=== PATIENT | male | born 1945 | race Caucasian/White ===

== ENCOUNTER 2020-02-15 14:41 | Inpatient (IN) | payer MEDICARE, BC, OTHER ==
[~2020-02-15] VITALS: Ht 193 cm; Wt 10.4 kg
[2020-02-15 15:34] LABS: BASOPHILS # (AUTO) 0.1 (0.0-0.1); BASOPHILS % 0.4 % (0.0-1.0); EOSINOPHILS % 0.1 % (0.0-6.0); HEMATOCRIT 44.8 % (38.2-49.6); HEMOGLOBIN 13.7 g/dL (14.0-18.0); LYMPHOCYTES % 7.3 % (18.0-39.1); MEAN CORPUSCULAR HEMOGLOBIN 25.9 pg (28-32); MEAN CORPUSCULAR HGB CONC 30.6 g/dL (31-35); MEAN CORPUSCULAR VOLUME 84.7 fL (81-99); MONOCYTES # (AUTO) 0.3 (0.2-0.8); MONOCYTES % 2.1 % (4.4-11.3); NEUTROPHILS # (AUTO) 12.5 (2.1-6.9); NEUTROPHILS % 88.6 % (38.7-80.0); PLATELET COUNT 250 x10e3/uL (140-360); RED BLOOD COUNT 5.29 x10e6/uL (4.3-5.7); RED CELL DISTRIBUTION WIDTH 22.8 % (11.7-14.4)
--- NOTE | 2020-02-15 15:47 | Diagnostic Imaging Report ---
Exam: Finger 3 views History: Pain Comparison: None. Findings: No fracture or malalignment. Joint spaces preserved. No abnormal soft tissue calcification or soft tissue defect. Soft tissue swelling of the index finger. Impression: No acute osseous abnormality. Soft tissue swelling. Signed by: Dr. Ray Chow M.D. on 02/15/2020 3:43 PM
[2020-02-15 15:57] LABS: ALBUMIN/GLOBULIN RATIO 0.9 (0.8-2.0); ANION GAP 13.3 mmol/L (8-16); CALCIUM 8.2 mg/dL (8.4-10.2); CREATININE, SERUM 1.42 mg/dL (0.72-1.25); POTASSIUM 4.3 mmol/L (3.5-5.1)
[2020-02-15] MEDS ORDERED: ONDANSETRON HCL INJ 2MG/ML 2ML 2 MG/ML VIAL IV PRN (16:00)
[2020-02-15] MEDS ORDERED: ACETAMINOPHEN 325 MG TAB PO PRN ×2 (16:00→19:00)
[2020-02-15] MEDS ORDERED: SODIUM CHLORIDE 0.9% 1000ML 1,000 ML IV SCH (16:00)
[2020-02-15] MEDS ORDERED: VANCOMYCIN 1GM/NS 250 ML 250 ML IV ONE (16:00)
--- OUTSIDE RECORDS SUMMARY | 2020-02-15 16:15 | XMS REPORT ---
Author Author [facility] Organization [facility] Address Unknown Phone Unavailable Care Team Providers Care Comprehensive Advisor Name Role Phone Miguelina INIGUEZ Unavailable Unavailable Payers Payer Name Policy Type Policy Number Effective Date Expiration D ate Problems This patient has no known problems. Allergies, Adverse Reactions, Alerts Allergy Name Allergy Type Status Severity Reaction(s) Onset Date Inacti ve Date Treating Clinician Comments Penicillins DA Active MO 2018-07-02 00:00:00 Sulfa (Sulfonamide Antibiotics) DA Active U 00:00:00 tetracycline DA Active U 2018-07-02 00:00:00 celecoxib DA Active U 2018-07-02 00:00:00 Penicillins DA Active MO 2018-06-25 00:00:00 Sulfa (Sulfonamide Antibiotics) DA Active U 00:00:00 tetracycline DA Active U 2018-06-25 00:00:00 celecoxib DA Active U 2018-06-25 00:00:00 Penicillins DA Active MO 2018-06-20 00:00:00 Sulfa (Sulfonamide Antibiotics) DA Active U 00:00:00 tetracycline DA Active U 2018-06-20 00:00:00 celecoxib DA Active U 2018-06-20 00:00:00 Penicillins DA Active MO 2017-10-31 00:00:00 Sulfa (Sulfonamide Antibiotics) DA Active U 00:00:00 tetracycline DA Active U 2017-10-31 00:00:00 celecoxib DA Active U 2017-10-31 00:00:00 Medications This patient has no known medications. Results Test Description Test Time Test Comments Text Results Atomic Results Result Comments FINGER RIGHT 2020-02-15 15:42:00 [place] [address] Patient Name: KAMALJIT CAMACHO MR #: [id number] : 1945 Age/Sex: 74/M Req #: [id number] Adm Physician: Ordered by: KAMALJIT MIKE NP Report #: [id number] Location: ER Room/Bed: Procedure: [id number] DX/FINGER RIGHT Exam Date: 02/15/20 Exam Time: 1450 REPORT STATUS: Signed Exam: Finger 3 views History: Pain Comparison: None. Findings: No fracture or malalignment. Joint spaces preserved. No abnormal soft tissue calcification or soft tissue defect. Soft tissue swelling of the index finger. Impression: No acute osseous abnormality. Soft tissue swelling. Signed by: Dr. Alexis Doshi M.D. on 02/15/2020 3:43 PM Dictated By: ALEXIS DOSHI MD [id number] Transcribed By: NEVA on 02/15/20 6009 COPY TO: KAMALJIT MIKE NP LUNG,BIOPSY 2019-04-24 15:20:00 RUN DATE: 04/24/19 [facility] PAGE 1 RUN TIME: 1520 Specimen Inquiry RUN USER: INTERFACE PATIENT: KAMALJIT CAMACHO LOC: [place] #: [id number] AGE/SX: 74/M ROOM: [facility] RE04/17/19REG DR: Hu Duarte MD : 41 BED: B DIS: 04/23/19 STATUS: DIS IN TLOC: SPEC #: [id number] RECD: 04/22/19 STATUS: PAUL REDiane #: [id number] ALESSANDRO: 04/22/19- [facility] DR: Kan King MD ENTERED: 04/22/19 SP TYPE: LUNG BX OTHR DR: Екатерина Solorzano MD, David A MD Vasquez Donado, Andres F MDORDERED: GROSS COPIES TO: Kan King MD [address] [place] [address] Екатерина Solorzano MD [address] [facility] [address] [place] [address] Kang Aquino MD [address] [place] [address] Chon Nam MD [address] [facility] [address] [place] [address] PROCEDURES: GROSS (04/24/19-1500) TISSUES: RIGHT LUNG, NOS - MASS BX CLINICAL HISTORY COLLECTION DATE: 04/22/2019 HISTORY OF LUNG MASS, POSSIBLE TUBERCULOSIS (TB) COMMENT Clinical correlation is recommended. CONTINUED ON NEXT PAGE RUN DATE: 04/24/19 [facility] PAGE 2 RUN TIME: 1520 Specimen Inquiry RUN USER: INTERFACE SPEC #: [id number] PATIENT: KAMALJIT CAMACHO #[id number] (Continued) FINAL DIAGNOSIS Right lung mass, core biopsy and touch preps: LUNG TISSUE WITH CHRONIC INFLAMMATION, INCREASED FIBROUS TISSUE AND A NECROTIZING GRANULOMA NEGATIVE FOR ACID FAST AND FUNGAL ORGANISMS NEGATIVE FOR MALIGNANCY [facility]/ D 83854, 97062, [id number] MACROSCOPIC The specimen is received in formalin and labeled with the patient's name and identified as "right lung mass bx", and consists of multiple gomes soft core biopsies ranging from 0.3 to 0.8 cm. The specimen is filtered and entirely submitted in a single cassette. Also received are three touch prep slides for cytologic evaluation. GROSS PERFORMED AT [facility] [address] [place] [address] (P)[phone] MICROSCOPIC The sections demonstrate lung tissue with chronic inflammation consisting of lymphocytes and plasma cells. There is an increased amount of fibrous tissue present in the alveolar florian. There is an area of necrotizing granuloma formation. An acid fast and a GMS stain are prepared on the core biopsy and an acid fast stain is prepared on one the touch prep slides and a GMS stain is prepared on another touch prep slide. The remaining touch prep slide is stained with a PAP stain and demonstrates benign pulmonary macrophages, some white blood cells, and red blood cells, and a giant cell. The GMS and acid fast stains are negative in the touch preps and in the core biopsy sections. All of the stains, including any controls performed, stain appropriately. MICROSCOPIC PERFORMED AT [facility] [address] [place] [address] (p)[phone] CONTINUED ON NEXT PAGE RUN DATE: 04/24/19 [facility] PAGE 3 RUN TIME: 1520 Specimen Inquiry RUN USER: INTERFACE SPEC #: [id number] PATIENT: KAMALJIT CAMACHO #[id number] (Cont inued) PERFORMING SITE Diagnosis performed at: [facility] [address] [place] [address] Signed SIGNATURE ON FILE Yaa Simmons MD 04/24/19 1520 END OF REPORT AG HISTOPLASMA UA 2019-04-24 13:52:00 AG HISTOPLASMA UA (test code = HISUAAG) <0.5 EIA UNIT <1.0=NEG SOURCE: RANDOM URINE QUANTIFERON [id number] 19:08:00* Test Item Value Reference Range Comments QUANTIFERON TEST (test code = QFTT) Negative Negative The specimen received for QuantiFERON testing was incubatedby the ordering institution. Specific procedures outlinedin our Directory of Services and in the package insert forthe QuantiFERON Gold (In Tube) test must be followed toenable for proper stimulation of cells for the productionof interferon gamma.Performed At: [facility] [id number] Sanjai MD P h:[id number] - XR CHEST 1 [id number] 17:52:00 FAX: Hu Sykes MD [phone] [place]: St: ADM Name: KAMALJIT SILVA [facility] : [birth year] Age/S: 74/M [address] [facility] Unit #: [id number] Loc: V.[address] [place] [address] Phys: Ivan Lyon MD Acct: [id number] Dis Date: Status: ADM IN PHONE #: [phone] Exam Date: 04/22/2019 1720 FAX #: [phone] Reason: POST LUNG BX EXAMS: CPT CODE: [id number] XR CHEST 1 V 12726 REASON FOR EXAM: POST LUNG BX Exam Order Date: 04/22/2019 4:56 PM Ordering M.D.: Ivan Lyon MD PROCEDURE: - XR CHEST 1 V COMPARISON: AP chest x-ray earlier today at 12:11 PM FINDINGS: Prev iously seen right apical pneumothorax has resolved. Spiculated lesion in t he right upper lobe is stable appearing. Remainder of the lungs appear augusto ssly clear. Left subclavian vein approach ICD/pacemaker is stable. Lungs are clear. Cardiac mediastinal silhouette is enlarged but stable appearing. Bones are unchanged. IMPRES SONU: Previously seen right apical pneumothorax has resolved. Remaining findings are unchanged. Electronically Signed by Petr Mayers MD on 0 04/22/2019 at 6442 Reported and signed by: Petr Mayers MD CC: Hu Duarte Techn ologist: Maya Nieves) Trnscrd Date/Luis Fernando e/By: 04/22/2019 (695) : By: CeleRR31 Orig Print D/T: S: 04/22/2019 (5861) PAGE 1 Signed Report - CT GUID NDL [id number] 16:20:00 Name: KAMALJIT CAMACHO [facility] : 1945 Age/S: 74 / M [address] [facility] Unit #: [id number] Loc: [place] [address] Phys: Nataly Duarte am, MD Acct: [id number] Di s Date: Status: ADM IN PHONE #: Exam Date: 04/22/2019954 FAX #: Reason: LUNG BIOPSY EXAMS: CPT CODE: [id number] CT GUID NDL P [facility] [address] REASON FOR EXAM: Right upper lobe lung mass. PROCEDURE: CT-guided biopsy of right u pper lobe lung mass [id number]-xx-[id number] procedure time is approximately: 45 minutes FINDINGS: After informed consent was obtained, the bret ent was brought to CT and placed supine on the table. All elements of [facility] sterile barrier technique were followed. Prior to the biopsy, axial images of the right upper lobe were obtained without intravenous co ntrast. Images of the CT were reviewed and the right upper lobe mass was localized. A safe pathway was found between the subcutaneous entry site a nd the right upper lobe mass. The access site was prepped and draped in th e usual sterile fashion. A guiding needle was advanced into right upper lo be mass. Multiple core biopsies were then performed using a 20-gauge biops y gun. Samples were submitted for cytology, microbiology, and flow cytomet ry. The needle was removed and hemostasis obtained. MEDICATI ONS: 1mg versed 25mcg fentanyl COMPLICATIONS: No immediate Blood loss: Less than 5 mL Fluoroscopic dose:640 mGy IMPRESSION: Technically successful CT-guided biopsy of right upper lobe mass. at 1620 Reported and signed by: Ivan Lyon M.D. CC: Hu Duarte Technologist:Rosalba groves,RT(R),CT CTDI: DLP: Trnscb Date/Time: 04/22/2019 (16 20) CeleVTL Orig Print D/T: S: 04/22/2019 (4875) P AGE 1 Signed Report - XR CHEST 1 [id number] 12:49:00 FAX: Hu Sykes MD [phone] [place]: St: ADM Name: KAMALJIT SILVA [facility] : 04/17/[birth year] 41 Age/S: 74/M [address] [facility] Unit #: [id number] Loc: V.[address] [place] [address] Phys: Ivan Lyon MD Acct: [id number] Dis Date: Status: ADM IN PHONE #: [phone] Exam Date: 04/22/2019 1211 FAX #: [phone] Reason: POST LUNG BX EXAMS: CPT CODE: [id number] XR CHEST 1 V 08216 HISTORY: Post lung biopsy. COMPARISON: 2019. Trace 5% pneumothorax in the right apex. Follow-up with expiratory films for confirmation. Left ICD is unc hanged. Right upper lobe mass is ill-defined after biopsy due to surroundi ng small hemorrhage. Bibasal subsegmental atelectasis without infiltrates or congestion. Cardiomegaly IMPRESSION: Trace 5% pneumothorax in the right apex of the biopsy. Confirmation with repeat exam in expiratory phase. These findings were called to the spec ial procedures at 12:48 PM. at 5884 Reported and signed by: Maico yousif M.D. CC: Hu Duarte Technologist: JC NEWBY JR Trnscrd Date/Time/By: 04/22/2019 (1322) : By: CeleTH4 Orig Print D/T: S: 04/22/2019 (2339) PAGE 1 Signed Report B-TYPE NATRIURETIC [id number] 06:04:00* Test Item Value Reference Range Comments B-TYPE NATRIURETIC PEPTIDE (test code = BNP) 861.01 pgram/mL 0-1 00 Has Patient received Natrecor? NOCBC W/AUTO [id number] 06:03:00* Test Item Value Reference Range Comments WHITE BLOOD CELL (test code = WBC) 15.6 K/mm3 4.5-12.5 RED BLOOD CELL (test code = RBC) 4.63 mill/mm3 4.0-5.8 HEMOGLOBIN (test code = HGB) 12.2 gram/dL 13.0-17.5 HEMATOCRIT (test code = HCT) 38.9 % 42.0-52.0 MEAN CELL VOLUME (test code = MCV) 84.0 fL 80-98 MEAN CELL HGB (test code = MCH) 26.3 picogram 27.0-33.0 MEAN CELL HGB CONCETRATION (test code = MCHC) 31.4 gram/dL 33 .0-36.0 RED CELL DISTRIBUTION WIDTH (test code = RDW) 21.7 % 11 .6-16.2 RED CELL DISTRIBUTION WIDTH SD (test code = RDW-SD) 66.0 fL 37.0-51.0 PLATELET COUNT (test code = PLT) 234 K/mm3 150-450 MEAN PLATELET VOLUME (test code = MPV) 9.5 fL 6.7-11.0 NEUTROPHIL % (test code = NT%) 78.0 % 39.0-69.0 IMMATURE GRANULOCYTE % (test code = IG%) 2.8 % 0.0-5.0 LYMPHOCYTE % (test code = LY%) 11.7 % 25.0-55.0 MONOCYTE % (test code = MO%) 6.1 % 0.0-10.0 EOSINOPHIL % (test code = EO%) 1.0 % 0.0-5.0 BASOPHIL % (test code = BA%) 0.4 % 0.0-1.0 NUCLEATED RBC % (test code = NRBC%) 0.0 % 0-0 NEUTROPHIL # (test code = NT#) 12.17 K/mm3 1.8-7.7 IMMATURE GRANULOCYTE # (test code = IG#) 0.44 x10 3/uL 0-0.03 LYMPHOCYTE # (test code = LY#) 1.83 K/mm3 1.0-5.0 MONOCYTE # (test code = MO#) 0.95 K/mm3 0-0.8 EOSINOPHIL # (test code = EO#) 0.15 K/mm3 0.0-0.5 BASOPHIL # (test code = BA#) 0.06 K/mm3 0.0-0.2 NUCLEATED RBC # (test code = NRBC#) 0.00 K/mm3 0.0-0.1 MANUAL DIFF REQUIRED (test code = MDIFF) NO, ONLY SCAN NEEDED DIFFERENTIAL [id number] 06:03:00* Test Item Value Reference Range Comments STAIN ACCEPTABILITY (test code = STN ACCEPTABLE) STAIN ACCEPTABL E POIKILOCYTOSIS (test code = POIK) 3+ ANISOCYTOSIS (test code = ANISO) 1+ ELLIPTOCYTES (test code = ELL) 2+ AYANA CELLS (test code = AYANA) 2+ NONE PLATELET ESTIMATE (test code = PLTEST) ADEQUATE PLATELET MORPHOLOGY (test code = PLTMORPH) NORMAL BASIC METABOLIC [id number] 05:52:00* Test Item Value Reference Range Comments SODIUM (test code = NA) 141 mmol/L 136-145 POTASSIUM (test code = K) 4.4 mmol/L 3.5-5.1 CHLORIDE (test code = CL) 108.0 mmol/L 98-107 CARBON DIOXIDE (test code = CO2) 27.0 mmol/L 21-32 ANION GAP (test code = GAP) 10.4 10-20 GLUCOSE (test code = GLU) 83 mg/dL 74-106 BLOOD UREA NITROGEN (test code = BUN) 18 mg/dL 7-18 GLOMERULAR FILTRATION RATE (test code = GFR) 54 mL/min >=6 0 Estimated GFR by using Modified MDRD formula.Chronic kidney disease is defined as either kidney damageor GFR <60 mL/min/1.73 m2 for >3 months. CREATININE (test code = CREAT) 1.30 mg/dL 0.7-1.3 BUN/CREATININE RATIO (test code = BUN/CREA) 14.2 10-2 0 CALCIUM (test code = CA) 8.4 mg/dL 8.5-10.1 [id number] 05:52:00* Test Item Value Reference Range Comments MAGNESIUM (test code = MAG) 2.0 mg/dL 1.8-2.4 BASIC METABOLIC [id number] 05:50:00* Test Item Value Reference Range Comments SODIUM (test code = NA) 141 mmol/L 136-145 POTASSIUM (test code = K) 4.4 mmol/L 3.5-5.1 CHLORIDE (test code = CL) 108.0 mmol/L 98-107 CARBON DIOXIDE (test code = CO2) mmol/L 21-32 ANION GAP (test code = GAP) 10-20 GLUCOSE (test code = GLU) mg/dL 74-106 BLOOD UREA NITROGEN (test code = BUN) mg/dL 7-18 GLOMERULAR FILTRATION RATE (test code = GFR) mL/min >=6 0 CREATININE (test code = CREAT) mg/dL 0.7-1.3 BUN/CREATININE RATIO (test code = BUN/CREA) 10-2 0 CALCIUM (test code = CA) 8.4 mg/dL 8.5-10.1 [id number] 05:50:00* Test Item Value Reference Range Comments MAGNESIUM (test code = MAG) mg/dL 1.8-2.4 THROMBOPLASTIN TIME [id number] 05:30:00* Test Item Value Reference Range Comments THROMBOPLASTIN TIME PARTIAL (test code = PTT) 32.0 seconds 25 .0-36.5 IS PATIENT ON ANTICOAGULANTS? 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 The recommended therapeutic INRrange for various clinical situations is listed below: Clinical Situation INR range Pulmonary e mbolism treatment (2.0-3.0)Venous thrombosis treatmentVenous thrombosis prophylaxis (high risk surgery)Prevention of systemic embolism from: Acute myocardial infarction Valvular heart disease Atrial fibrillation Mechanical prosthetic heart valves (2.5-3.5) IS PATIENT ON ANTICOAGULANTS? NCBC W/AUTO [id number] 05:21:00* Test Item Value Reference Range Comments WHITE BLOOD CELL (test code = WBC) 15.6 K/mm3 4.5-12.5 RED BLOOD CELL (test code = RBC) 4.63 mill/mm3 4.0-5.8 HEMOGLOBIN (test code = HGB) 12.2 gram/dL 13.0-17.5 HEMATOCRIT (test code = HCT) 38.9 % 42.0-52.0 MEAN CELL VOLUME (test code = MCV) 84.0 fL 80-98 MEAN CELL HGB (test code = MCH) 26.3 picogram 27.0-33.0 MEAN CELL HGB CONCETRATION (test code = MCHC) 31.4 gram/dL 33 .0-36.0 RED CELL DISTRIBUTION WIDTH (test code = RDW) 21.7 % 11 .6-16.2 RED CELL DISTRIBUTION WIDTH SD (test code = RDW-SD) 66.0 fL 37.0-51.0 PLATELET COUNT (test code = PLT) 234 K/mm3 150-450 MEAN PLATELET VOLUME (test code = MPV) 9.5 fL 6.7-11.0 NEUTROPHIL % (test code = NT%) 78.0 % 39.0-69.0 IMMATURE GRANULOCYTE % (test code = IG%) 2.8 % 0.0-5.0 LYMPHOCYTE % (test code = LY%) 11.7 % 25.0-55.0 MONOCYTE % (test code = MO%) 6.1 % 0.0-10.0 EOSINOPHIL % (test code = EO%) 1.0 % 0.0-5.0 BASOPHIL % (test code = BA%) 0.4 % 0.0-1.0 NUCLEATED RBC % (test code = NRBC%) 0.0 % 0-0 NEUTROPHIL # (test code = NT#) 12.17 K/mm3 1.8-7.7 IMMATURE GRANULOCYTE # (test code = IG#) 0.44 x10 3/uL 0-0.03 LYMPHOCYTE # (test code = LY#) 1.83 K/mm3 1.0-5.0 MONOCYTE # (test code = MO#) 0.95 K/mm3 0-0.8 EOSINOPHIL # (test code = EO#) 0.15 K/mm3 0.0-0.5 BASOPHIL # (test code = BA#) 0.06 K/mm3 0.0-0.2 NUCLEATED RBC # (test code = NRBC#) 0.00 K/mm3 0.0-0.1 MANUAL DIFF REQUIRED (test code = MDIFF) NO, ONLY SCAN NEEDED DIFFERENTIAL [id number] 05:21:00* Test Item Value Reference Range Comments STAIN ACCEPTABILITY (test code = STN ACCEPTABLE) CABOT RINGS (test code = CAB) MORPHOLOGY COMMENT (test code = MOC) PLATELET ESTIMATE (test code = PLTEST) PLATELET MORPHOLOGY (test code = PLTMORPH) CBC W/AUTO [id number] 05:21:00* Test Item Value Reference Range Comments WHITE BLOOD CELL (test code = WBC) 15.6 K/mm3 4.5-12.5 RED BLOOD CELL (test code = RBC) 4.63 mill/mm3 4.0-5.8 HEMOGLOBIN (test code = HGB) 12.2 gram/dL 13.0-17.5 HEMATOCRIT (test code = HCT) 38.9 % 42.0-52.0 MEAN CELL VOLUME (test code = MCV) 84.0 fL 80-98 MEAN CELL HGB (test code = MCH) 26.3 picogram 27.0-33.0 MEAN CELL HGB CONCETRATION (test code = MCHC) 31.4 gram/dL 33 .0-36.0 RED CELL DISTRIBUTION WIDTH (test code = RDW) 21.7 % 11 .6-16.2 RED CELL DISTRIBUTION WIDTH SD (test code = RDW-SD) 66.0 fL 37.0-51.0 PLATELET COUNT (test code = PLT) 234 K/mm3 150-450 MEAN PLATELET VOLUME (test code = MPV) 9.5 fL 6.7-11.0 NEUTROPHIL % (test code = NT%) 78.0 % 39.0-69.0 IMMATURE GRANULOCYTE % (test code = IG%) 2.8 % 0.0-5.0 LYMPHOCYTE % (test code = LY%) 11.7 % 25.0-55.0 MONOCYTE % (test code = MO%) 6.1 % 0.0-10.0 EOSINOPHIL % (test code = EO%) 1.0 % 0.0-5.0 BASOPHIL % (test code = BA%) 0.4 % 0.0-1.0 NUCLEATED RBC % (test code = NRBC%) 0.0 % 0-0 NEUTROPHIL # (test code = NT#) 12.17 K/mm3 1.8-7.7 IMMATURE GRANULOCYTE # (test code = IG#) 0.44 x10 3/uL 0-0.03 LYMPHOCYTE # (test code = LY#) 1.83 K/mm3 1.0-5.0 MONOCYTE # (test code = MO#) 0.95 K/mm3 0-0.8 EOSINOPHIL # (test code = EO#) 0.15 K/mm3 0.0-0.5 BASOPHIL # (test code = BA#) 0.06 K/mm3 0.0-0.2 NUCLEATED RBC # (test code = NRBC#) 0.00 K/mm3 0.0-0.1 MANUAL DIFF REQUIRED (test code = MDIFF) NO, ONLY SCAN NEEDED DIFFERENTIAL [id number] 05:21:00* Test Item Value Reference Range Comments STAIN ACCEPTABILITY (test code = STN ACCEPTABLE) CABOT RINGS (test code = CAB) MORPHOLOGY COMMENT (test code = MOC) PLATELET ESTIMATE (test code = PLTEST) PLATELET MORPHOLOGY (test code = PLTMORPH) CBC W/AUTO [id number] 05:21:00* Test Item Value Reference Range Comments WHITE BLOOD CELL (test code = WBC) 15.6 K/mm3 4.5-12.5 RED BLOOD CELL (test code = RBC) 4.63 mill/mm3 4.0-5.8 HEMOGLOBIN (test code = HGB) 12.2 gram/dL 13.0-17.5 HEMATOCRIT (test code = HCT) 38.9 % 42.0-52.0 MEAN CELL VOLUME (test code = MCV) 84.0 fL 80-98 MEAN CELL HGB (test code = MCH) 26.3 picogram 27.0-33.0 MEAN CELL HGB CONCETRATION (test code = MCHC) 31.4 gram/dL 33 .0-36.0 RED CELL DISTRIBUTION WIDTH (test code = RDW) 21.7 % 11 .6-16.2 RED CELL DISTRIBUTION WIDTH SD (test code = RDW-SD) 66.0 fL 37.0-51.0 PLATELET COUNT (test code = PLT) 234 K/mm3 150-450 MEAN PLATELET VOLUME (test code = MPV) 9.5 fL 6.7-11.0 NEUTROPHIL % (test code = NT%) 78.0 % 39.0-69.0 IMMATURE GRANULOCYTE % (test code = IG%) 2.8 % 0.0-5.0 LYMPHOCYTE % (test code = LY%) 11.7 % 25.0-55.0 MONOCYTE % (test code = MO%) 6.1 % 0.0-10.0 EOSINOPHIL % (test code = EO%) 1.0 % 0.0-5.0 BASOPHIL % (test code = BA%) 0.4 % 0.0-1.0 NUCLEATED RBC % (test code = NRBC%) 0.0 % 0-0 NEUTROPHIL # (test code = NT#) 12.17 K/mm3 1.8-7.7 IMMATURE GRANULOCYTE # (test code = IG#) 0.44 x10 3/uL 0-0.03 LYMPHOCYTE # (test code = LY#) 1.83 K/mm3 1.0-5.0 MONOCYTE # (test code = MO#) 0.95 K/mm3 0-0.8 EOSINOPHIL # (test code = EO#) 0.15 K/mm3 0.0-0.5 BASOPHIL # (test code = BA#) 0.06 K/mm3 0.0-0.2 NUCLEATED RBC # (test code = NRBC#) 0.00 K/mm3 0.0-0.1 MANUAL DIFF REQUIRED (test code = MDIFF) NO, ONLY SCAN NEEDED DIFFERENTIAL [id number] 05:21:00* Test Item Value Reference Range Comments STAIN ACCEPTABILITY (test code = STN ACCEPTABLE) MORPHOLOGY COMMENT (test code = MOC) PLATELET ESTIMATE (test code = PLTEST) PLATELET MORPHOLOGY (test code = PLTMORPH) CBC W/AUTO [id number] 05:21:00* Test Item Value Reference Range Comments WHITE BLOOD CELL (test code = WBC) 15.6 K/mm3 4.5-12.5 RED BLOOD CELL (test code = RBC) 4.63 mill/mm3 4.0-5.8 HEMOGLOBIN (test code = HGB) 12.2 gram/dL 13.0-17.5 HEMATOCRIT (test code = HCT) 38.9 % 42.0-52.0 MEAN CELL VOLUME (test code = MCV) 84.0 fL 80-98 MEAN CELL HGB (test code = MCH) 26.3 picogram 27.0-33.0 MEAN CELL HGB CONCETRATION (test code = MCHC) 31.4 gram/dL 33 .0-36.0 RED CELL DISTRIBUTION WIDTH (test code = RDW) 21.7 % 11 .6-16.2 RED CELL DISTRIBUTION WIDTH SD (test code = RDW-SD) 66.0 fL 37.0-51.0 PLATELET COUNT (test code = PLT) 234 K/mm3 150-450 MEAN PLATELET VOLUME (test code = MPV) 9.5 fL 6.7-11.0 NEUTROPHIL % (test code = NT%) 78.0 % 39.0-69.0 IMMATURE GRANULOCYTE % (test code = IG%) 2.8 % 0.0-5.0 LYMPHOCYTE % (test code = LY%) 11.7 % 25.0-55.0 MONOCYTE % (test code = MO%) 6.1 % 0.0-10.0 EOSINOPHIL % (test code = EO%) 1.0 % 0.0-5.0 BASOPHIL % (test code = BA%) 0.4 % 0.0-1.0 NUCLEATED RBC % (test code = NRBC%) 0.0 % 0-0 NEUTROPHIL # (test code = NT#) 12.17 K/mm3 1.8-7.7 IMMATURE GRANULOCYTE # (test code = IG#) 0.44 x10 3/uL 0-0.03 LYMPHOCYTE # (test code = LY#) 1.83 K/mm3 1.0-5.0 MONOCYTE # (test code = MO#) 0.95 K/mm3 0-0.8 EOSINOPHIL # (test code = EO#) 0.15 K/mm3 0.0-0.5 BASOPHIL # (test code = BA#) 0.06 K/mm3 0.0-0.2 NUCLEATED RBC # (test code = NRBC#) 0.00 K/mm3 0.0-0.1 MANUAL DIFF REQUIRED (test code = MDIFF) NO, ONLY SCAN NEEDED DIFFERENTIAL [id number] 05:21:00* Test Item Value Reference Range Comments STAIN ACCEPTABILITY (test code = STN ACCEPTABLE) CABOT RINGS (test code = CAB) MORPHOLOGY COMMENT (test code = MOC) PLATELET ESTIMATE (test code = PLTEST) PLATELET MORPHOLOGY (test code = PLTMORPH) CBC W/AUTO [id number] 07:59:00* Test Item Value Reference Range Comments WHITE BLOOD CELL (test code = WBC) 16.4 K/mm3 4.5-12.5 RED BLOOD CELL (test code = RBC) 4.56 mill/mm3 4.0-5.8 HEMOGLOBIN (test code = HGB) 12.3 gram/dL 13.0-17.5 HEMATOCRIT (test code = HCT) 39.7 % 42.0-52.0 MEAN CELL VOLUME (test code = MCV) 87.1 fL 80-98 MEAN CELL HGB (test code = MCH) 27.0 picogram 27.0-33.0 MEAN CELL HGB CONCETRATION (test code = MCHC) 31.0 gram/dL 33 .0-36.0 RED CELL DISTRIBUTION WIDTH (test code = RDW) 21.8 % 11 .6-16.2 RED CELL DISTRIBUTION WIDTH SD (test code = RDW-SD) 68.5 fL 37.0-51.0 PLATELET COUNT (test code = PLT) 220 K/mm3 150-450 MEAN PLATELET VOLUME (test code = MPV) 9.7 fL 6.7-11.0 NEUTROPHIL % (test code = NT%) 77.5 % 39.0-69.0 IMMATURE GRANULOCYTE % (test code = IG%) 2.2 % 0.0-5.0 LYMPHOCYTE % (test code = LY%) 11.9 % 25.0-55.0 MONOCYTE % (test code = MO%) 6.5 % 0.0-10.0 EOSINOPHIL % (test code = EO%) 1.5 % 0.0-5.0 BASOPHIL % (test code = BA%) 0.4 % 0.0-1.0 NUCLEATED RBC % (test code = NRBC%) 0.0 % 0-0 NEUTROPHIL # (test code = NT#) 12.73 K/mm3 1.8-7.7 IMMATURE GRANULOCYTE # (test code = IG#) 0.36 x10 3/uL 0-0.03 LYMPHOCYTE # (test code = LY#) 1.96 K/mm3 1.0-5.0 MONOCYTE # (test code = MO#) 1.07 K/mm3 0-0.8 EOSINOPHIL # (test code = EO#) 0.25 K/mm3 0.0-0.5 BASOPHIL # (test code = BA#) 0.07 K/mm3 0.0-0.2 NUCLEATED RBC # (test code = NRBC#) 0.00 K/mm3 0.0-0.1 MANUAL DIFF REQUIRED (test code = MDIFF) NO, ONLY SCAN NEEDED DIFFERENTIAL [id number] 07:59:00* Test Item Value Reference Range Comments STAIN ACCEPTABILITY (test code = STN ACCEPTABLE) STAIN ACCEPTABL E POIKILOCYTOSIS (test code = POIK) 3+ ANISOCYTOSIS (test code = ANISO) 1+ MICROCYTOSIS (test code = MICR) 1+ ELLIPTOCYTES (test code = ELL) 1+ AYANA CELLS (test code = YAANA) 2+ NONE ACANTHOCYTES (test code = ACAN) 1+ NONE SICKLE CELLS (test code = SICKL) 1+ PLATELET ESTIMATE (test code = PLTEST) ADEQUATE PLATELET MORPHOLOGY (test code = PLTMORPH) NORMAL COMPREHENSIVE METABOLIC [id number] 06:26:00* Test Item Value Reference Range Comments SODIUM (test code = NA) 140 mmol/L 136-145 POTASSIUM (test code = K) 4.3 mmol/L 3.5-5.1 CHLORIDE (test code = CL) 109.0 mmol/L 98-107 CARBON DIOXIDE (test code = CO2) 23.0 mmol/L 21-32 ANION GAP (test code = GAP) 12.3 10-20 GLUCOSE (test code = GLU) 75 mg/dL 74-106 BLOOD UREA NITROGEN (test code = BUN) 17 mg/dL 7-18 GLOMERULAR FILTRATION RATE (test code = GFR) 59 mL/min >=6 0 Estimated GFR by using Modified MDRD formula.Chronic kidney disease is defined as either kidney damageor GFR <60 mL/min/1.73 m2 for >3 months. CREATININE (test code = CREAT) 1.20 mg/dL 0.7-1.3 BUN/CREATININE RATIO (test code = BUN/CREA) 14.2 10-2 0 TOTAL PROTEIN (test code = PROT) 5.8 gram/dL 6.4-8.2 ALBUMIN (test code = ALB) 2.4 g/dL 3.4-5.0 GLOBULIN (test code = GLOB) 3.4 gram/dL 2.7-4.2 ALBUMIN/GLOBULIN RATIO (test code = A/G) 0.7 0.75-1. 50 CALCIUM (test code = CA) 8.2 mg/dL 8.5-10.1 BILIRUBIN TOTAL (test code = BILT) 0.80 mg/dL 0.0-1.0 SGOT/AST (test code = AST) 16 IUnit/L 15-37 SGPT/ALT (test code = ALT) 19 IUnit/L 12-78 ALKALINE PHOSPHATASE TOTAL (test code = ALKP) 84 IUnit/L 45 -117 Note change in reference range due to change in reagent. COMPREHENSIVE METABOLIC [id number] 06:15:00* Test Item Value Reference Range Comments SODIUM (test code = NA) 140 mmol/L 136-145 POTASSIUM (test code = K) 4.3 mmol/L 3.5-5.1 CHLORIDE (test code = CL) 109.0 mmol/L 98-107 CARBON DIOXIDE (test code = CO2) mmol/L 21-32 ANION GAP (test code = GAP) 10-20 GLUCOSE (test code = GLU) mg/dL 74-106 BLOOD UREA NITROGEN (test code = BUN) mg/dL 7-18 GLOMERULAR FILTRATION RATE (test code = GFR) mL/min >=6 0 CREATININE (test code = CREAT) mg/dL 0.7-1.3 BUN/CREATININE RATIO (test code = BUN/CREA) 10-2 0 TOTAL PROTEIN (test code = PROT) gram/dL 6.4-8.2 ALBUMIN (test code = ALB) g/dL 3.4-5.0 GLOBULIN (test code = GLOB) gram/dL 2.7-4.2 ALBUMIN/GLOBULIN RATIO (test code = A/G) 0.75-1. 50 CALCIUM (test code = CA) mg/dL 8.5-10.1 BILIRUBIN TOTAL (test code = BILT) mg/dL 0.0-1.0 SGOT/AST (test code = AST) IUnit/L 15-37 SGPT/ALT (test code = ALT) IUnit/L 12-78 ALKALINE PHOSPHATASE TOTAL (test code = ALKP) IUnit/L 45 -117 CBC W/AUTO [id number] 05:47:00* Test Item Value Reference Range Comments WHITE BLOOD CELL (test code = WBC) 16.4 K/mm3 4.5-12.5 RED BLOOD CELL (test code = RBC) 4.56 mill/mm3 4.0-5.8 HEMOGLOBIN (test code = HGB) 12.3 gram/dL 13.0-17.5 HEMATOCRIT (test code = HCT) 39.7 % 42.0-52.0 MEAN CELL VOLUME (test code = MCV) 87.1 fL 80-98 MEAN CELL HGB (test code = MCH) 27.0 picogram 27.0-33.0 MEAN CELL HGB CONCETRATION (test code = MCHC) 31.0 gram/dL 33 .0-36.0 RED CELL DISTRIBUTION WIDTH (test code = RDW) 21.8 % 11 .6-16.2 RED CELL DISTRIBUTION WIDTH SD (test code = RDW-SD) 68.5 fL 37.0-51.0 PLATELET COUNT (test code = PLT) 220 K/mm3 150-450 MEAN PLATELET VOLUME (test code = MPV) 9.7 fL 6.7-11.0 NEUTROPHIL % (test code = NT%) 77.5 % 39.0-69.0 IMMATURE GRANULOCYTE % (test code = IG%) 2.2 % 0.0-5.0 LYMPHOCYTE % (test code = LY%) 11.9 % 25.0-55.0 MONOCYTE % (test code = MO%) 6.5 % 0.0-10.0 EOSINOPHIL % (test code = EO%) 1.5 % 0.0-5.0 BASOPHIL % (test code = BA%) 0.4 % 0.0-1.0 NUCLEATED RBC % (test code = NRBC%) 0.0 % 0-0 NEUTROPHIL # (test code = NT#) 12.73 K/mm3 1.8-7.7 IMMATURE GRANULOCYTE # (test code = IG#) 0.36 x10 3/uL 0-0.03 LYMPHOCYTE # (test code = LY#) 1.96 K/mm3 1.0-5.0 MONOCYTE # (test code = MO#) 1.07 K/mm3 0-0.8 EOSINOPHIL # (test code = EO#) 0.25 K/mm3 0.0-0.5 BASOPHIL # (test code = BA#) 0.07 K/mm3 0.0-0.2 NUCLEATED RBC # (test code = NRBC#) 0.00 K/mm3 0.0-0.1 MANUAL DIFF REQUIRED (test code = MDIFF) NO, ONLY SCAN NEEDED DIFFERENTIAL [id number] 05:47:00* Test Item Value Reference Range Comments STAIN ACCEPTABILITY (test code = STN ACCEPTABLE) CABOT RINGS (test code = CAB) MORPHOLOGY COMMENT (test code = MOC) PLATELET ESTIMATE (test code = PLTEST) PLATELET MORPHOLOGY (test code = PLTMORPH) CBC W/AUTO [id number] 05:47:00* Test Item Value Reference Range Comments WHITE BLOOD CELL (test code = WBC) 16.4 K/mm3 4.5-12.5 RED BLOOD CELL (test code = RBC) 4.56 mill/mm3 4.0-5.8 HEMOGLOBIN (test code = HGB) 12.3 gram/dL 13.0-17.5 HEMATOCRIT (test code = HCT) 39.7 % 42.0-52.0 MEAN CELL VOLUME (test code = MCV) 87.1 fL 80-98 MEAN CELL HGB (test code = MCH) 27.0 picogram 27.0-33.0 MEAN CELL HGB CONCETRATION (test code = MCHC) 31.0 gram/dL 33 .0-36.0 RED CELL DISTRIBUTION WIDTH (test code = RDW) 21.8 % 11 .6-16.2 RED CELL DISTRIBUTION WIDTH SD (test code = RDW-SD) 68.5 fL 37.0-51.0 PLATELET COUNT (test code = PLT) 220 K/mm3 150-450 MEAN PLATELET VOLUME (test code = MPV) 9.7 fL 6.7-11.0 NEUTROPHIL % (test code = NT%) 77.5 % 39.0-69.0 IMMATURE GRANULOCYTE % (test code = IG%) 2.2 % 0.0-5.0 LYMPHOCYTE % (test code = LY%) 11.9 % 25.0-55.0 MONOCYTE % (test code = MO%) 6.5 % 0.0-10.0 EOSINOPHIL % (test code = EO%) 1.5 % 0.0-5.0 BASOPHIL % (test code = BA%) 0.4 % 0.0-1.0 NUCLEATED RBC % (test code = NRBC%) 0.0 % 0-0 NEUTROPHIL # (test code = NT#) 12.73 K/mm3 1.8-7.7 IMMATURE GRANULOCYTE # (test code = IG#) 0.36 x10 3/uL 0-0.03 LYMPHOCYTE # (test code = LY#) 1.96 K/mm3 1.0-5.0 MONOCYTE # (test code = MO#) 1.07 K/mm3 0-0.8 EOSINOPHIL # (test code = EO#) 0.25 K/mm3 0.0-0.5 BASOPHIL # (test code = BA#) 0.07 K/mm3 0.0-0.2 NUCLEATED RBC # (test code = NRBC#) 0.00 K/mm3 0.0-0.1 MANUAL DIFF REQUIRED (test code = MDIFF) NO, ONLY SCAN NEEDED DIFFERENTIAL [id number] 05:47:00* Test Item Value Reference Range Comments STAIN ACCEPTABILITY (test code = STN ACCEPTABLE) MORPHOLOGY COMMENT (test code = MOC) PLATELET ESTIMATE (test code = PLTEST) PLATELET MORPHOLOGY (test code = PLTMORPH) CBC W/AUTO [id number] 05:47:00* Test Item Value Reference Range Comments WHITE BLOOD CELL (test code = WBC) 16.4 K/mm3 4.5-12.5 RED BLOOD CELL (test code = RBC) 4.56 mill/mm3 4.0-5.8 HEMOGLOBIN (test code = HGB) 12.3 gram/dL 13.0-17.5 HEMATOCRIT (test code = HCT) 39.7 % 42.0-52.0 MEAN CELL VOLUME (test code = MCV) 87.1 fL 80-98 MEAN CELL HGB (test code = MCH) 27.0 picogram 27.0-33.0 MEAN CELL HGB CONCETRATION (test code = MCHC) 31.0 gram/dL 33 .0-36.0 RED CELL DISTRIBUTION WIDTH (test code = RDW) 21.8 % 11 .6-16.2 RED CELL DISTRIBUTION WIDTH SD (test code = RDW-SD) 68.5 fL 37.0-51.0 PLATELET COUNT (test code = PLT) 220 K/mm3 150-450 MEAN PLATELET VOLUME (test code = MPV) 9.7 fL 6.7-11.0 NEUTROPHIL % (test code = NT%) 77.5 % 39.0-69.0 IMMATURE GRANULOCYTE % (test code = IG%) 2.2 % 0.0-5.0 LYMPHOCYTE % (test code = LY%) 11.9 % 25.0-55.0 MONOCYTE % (test code = MO%) 6.5 % 0.0-10.0 EOSINOPHIL % (test code = EO%) 1.5 % 0.0-5.0 BASOPHIL % (test code = BA%) 0.4 % 0.0-1.0 NUCLEATED RBC % (test code = NRBC%) 0.0 % 0-0 NEUTROPHIL # (test code = NT#) 12.73 K/mm3 1.8-7.7 IMMATURE GRANULOCYTE # (test code = IG#) 0.36 x10 3/uL 0-0.03 LYMPHOCYTE # (test code = LY#) 1.96 K/mm3 1.0-5.0 MONOCYTE # (test code = MO#) 1.07 K/mm3 0-0.8 EOSINOPHIL # (test code = EO#) 0.25 K/mm3 0.0-0.5 BASOPHIL # (test code = BA#) 0.07 K/mm3 0.0-0.2 NUCLEATED RBC # (test code = NRBC#) 0.00 K/mm3 0.0-0.1 MANUAL DIFF REQUIRED (test code = MDIFF) NO, ONLY SCAN NEEDED DIFFERENTIAL [id number] 05:47:00* Test Item Value Reference Range Comments STAIN ACCEPTABILITY (test code = STN ACCEPTABLE) MORPHOLOGY COMMENT (test code = MOC) PLATELET ESTIMATE (test code = PLTEST) PLATELET MORPHOLOGY (test code = PLTMORPH) CBC W/AUTO [id number] 05:46:00* Test Item Value Reference Range Comments WHITE BLOOD CELL (test code = WBC) 16.4 K/mm3 4.5-12.5 RED BLOOD CELL (test code = RBC) 4.56 mill/mm3 4.0-5.8 HEMOGLOBIN (test code = HGB) 12.3 gram/dL 13.0-17.5 HEMATOCRIT (test code = HCT) 39.7 % 42.0-52.0 MEAN CELL VOLUME (test code = MCV) 87.1 fL 80-98 MEAN CELL HGB (test code = MCH) 27.0 picogram 27.0-33.0 MEAN CELL HGB CONCETRATION (test code = MCHC) 31.0 gram/dL 33 .0-36.0 RED CELL DISTRIBUTION WIDTH (test code = RDW) 21.8 % 11 .6-16.2 RED CELL DISTRIBUTION WIDTH SD (test code = RDW-SD) 68.5 fL 37.0-51.0 PLATELET COUNT (test code = PLT) 220 K/mm3 150-450 MEAN PLATELET VOLUME (test code = MPV) 9.7 fL 6.7-11.0 NEUTROPHIL % (test code = NT%) 77.5 % 39.0-69.0 IMMATURE GRANULOCYTE % (test code = IG%) 2.2 % 0.0-5.0 LYMPHOCYTE % (test code = LY%) 11.9 % 25.0-55.0 MONOCYTE % (test code = MO%) 6.5 % 0.0-10.0 EOSINOPHIL % (test code = EO%) 1.5 % 0.0-5.0 BASOPHIL % (test code = BA%) 0.4 % 0.0-1.0 NUCLEATED RBC % (test code = NRBC%) 0.0 % 0-0 NEUTROPHIL # (test code = NT#) 12.73 K/mm3 1.8-7.7 IMMATURE GRANULOCYTE # (test code = IG#) 0.36 x10 3/uL 0-0.03 LYMPHOCYTE # (test code = LY#) 1.96 K/mm3 1.0-5.0 MONOCYTE # (test code = MO#) 1.07 K/mm3 0-0.8 EOSINOPHIL # (test code = EO#) 0.25 K/mm3 0.0-0.5 BASOPHIL # (test code = BA#) 0.07 K/mm3 0.0-0.2 NUCLEATED RBC # (test code = NRBC#) 0.00 K/mm3 0.0-0.1 MANUAL DIFF REQUIRED (test code = MDIFF) NO, ONLY SCAN NEEDED DIFFERENTIAL [id number] 05:46:00* Test Item Value Reference Range Comments STAIN ACCEPTABILITY (test code = STN ACCEPTABLE) CABOT RINGS (test code = CAB) MORPHOLOGY COMMENT (test code = MOC) PLATELET ESTIMATE (test code = PLTEST) PLATELET MORPHOLOGY (test code = PLTMORPH) CBC W/AUTO [id number] 05:35:00* Test Item Value Reference Range Comments WHITE BLOOD CELL (test code = WBC) 16.8 K/mm3 4.5-12.5 RED BLOOD CELL (test code = RBC) 4.62 mill/mm3 4.0-5.8 HEMOGLOBIN (test code = HGB) 12.4 gram/dL 13.0-17.5 HEMATOCRIT (test code = HCT) 39.9 % 42.0-52.0 MEAN CELL VOLUME (test code = MCV) 86.4 fL 80-98 MEAN CELL HGB (test code = MCH) 26.8 picogram 27.0-33.0 MEAN CELL HGB CONCETRATION (test code = MCHC) 31.1 gram/dL 33 .0-36.0 RED CELL DISTRIBUTION WIDTH (test code = RDW) 22.1 % 11 .6-16.2 RED CELL DISTRIBUTION WIDTH SD (test code = RDW-SD) 68.3 fL 37.0-51.0 PLATELET COUNT (test code = PLT) 213 K/mm3 150-450 MEAN PLATELET VOLUME (test code = MPV) 9.6 fL 6.7-11.0 NEUTROPHIL % (test code = NT%) 79.8 % 39.0-69.0 IMMATURE GRANULOCYTE % (test code = IG%) 1.6 % 0.0-5.0 LYMPHOCYTE % (test code = LY%) 10.0 % 25.0-55.0 MONOCYTE % (test code = MO%) 6.6 % 0.0-10.0 EOSINOPHIL % (test code = EO%) 1.7 % 0.0-5.0 BASOPHIL % (test code = BA%) 0.3 % 0.0-1.0 NUCLEATED RBC % (test code = NRBC%) 0.0 % 0-0 NEUTROPHIL # (test code = NT#) 13.41 K/mm3 1.8-7.7 IMMATURE GRANULOCYTE # (test code = IG#) 0.27 x10 3/uL 0-0.03 LYMPHOCYTE # (test code = LY#) 1.68 K/mm3 1.0-5.0 MONOCYTE # (test code = MO#) 1.10 K/mm3 0-0.8 EOSINOPHIL # (test code = EO#) 0.28 K/mm3 0.0-0.5 BASOPHIL # (test code = BA#) 0.05 K/mm3 0.0-0.2 NUCLEATED RBC # (test code = NRBC#) 0.00 K/mm3 0.0-0.1 MANUAL DIFF REQUIRED (test code = MDIFF) NO, ONLY SCAN NEEDED DIFFERENTIAL [id number] 05:35:00* Test Item Value Reference Range Comments STAIN ACCEPTABILITY (test code = STN ACCEPTABLE) STAIN ACCEPTABL E POLYCHROMASIA (test code = POLC) 1+ POIKILOCYTOSIS (test code = POIK) 3+ ELLIPTOCYTES (test code = ELL) 1+ AYANA CELLS (test code = AYANA) 1+ NONE SCHISTOCYTES (test code = DEV) 2+ PLATELET ESTIMATE (test code = PLTEST) ADEQUATE PLATELET MORPHOLOGY (test code = PLTMORPH) NORMAL BASIC METABOLIC [id number] 05:34:00* Test Item Value Reference Range Comments SODIUM (test code = NA) 139 mmol/L 136-145 POTASSIUM (test code = K) 4.4 mmol/L 3.5-5.1 CHLORIDE (test code = CL) 108.0 mmol/L 98-107 CARBON DIOXIDE (test code = CO2) 25.0 mmol/L 21-32 ANION GAP (test code = GAP) 10.4 10-20 GLUCOSE (test code = GLU) 81 mg/dL 74-106 BLOOD UREA NITROGEN (test code = BUN) 17 mg/dL 7-18 GLOMERULAR FILTRATION RATE (test code = GFR) 49 mL/min >=6 0 Estimated GFR by using Modified MDRD formula.Chronic kidney disease is defined as either kidney damageor GFR <60 mL/min/1.73 m2 for >3 months. CREATININE (test code = CREAT) 1.40 mg/dL 0.7-1.3 BUN/CREATININE RATIO (test code = BUN/CREA) 12.1 10-2 0 CALCIUM (test code = CA) 8.7 mg/dL 8.5-10.1 CBC W/AUTO [id number] 05:00:00* Test Item Value Reference Range Comments WHITE BLOOD CELL (test code = WBC) 16.8 K/mm3 4.5-12.5 RED BLOOD CELL (test code = RBC) 4.62 mill/mm3 4.0-5.8 HEMOGLOBIN (test code = HGB) 12.4 gram/dL 13.0-17.5 HEMATOCRIT (test code = HCT) 39.9 % 42.0-52.0 MEAN CELL VOLUME (test code = MCV) 86.4 fL 80-98 MEAN CELL HGB (test code = MCH) 26.8 picogram 27.0-33.0 MEAN CELL HGB CONCETRATION (test code = MCHC) 31.1 gram/dL 33 .0-36.0 RED CELL DISTRIBUTION WIDTH (test code = RDW) 22.1 % 11 .6-16.2 RED CELL DISTRIBUTION WIDTH SD (test code = RDW-SD) 68.3 fL 37.0-51.0 PLATELET COUNT (test code = PLT) 213 K/mm3 150-450 MEAN PLATELET VOLUME (test code = MPV) 9.6 fL 6.7-11.0 NEUTROPHIL % (test code = NT%) 79.8 % 39.0-69.0 IMMATURE GRANULOCYTE % (test code = IG%) 1.6 % 0.0-5.0 LYMPHOCYTE % (test code = LY%) 10.0 % 25.0-55.0 MONOCYTE % (test code = MO%) 6.6 % 0.0-10.0 EOSINOPHIL % (test code = EO%) 1.7 % 0.0-5.0 BASOPHIL % (test code = BA%) 0.3 % 0.0-1.0 NUCLEATED RBC % (test code = NRBC%) 0.0 % 0-0 NEUTROPHIL # (test code = NT#) 13.41 K/mm3 1.8-7.7 IMMATURE GRANULOCYTE # (test code = IG#) 0.27 x10 3/uL 0-0.03 LYMPHOCYTE # (test code = LY#) 1.68 K/mm3 1.0-5.0 MONOCYTE # (test code = MO#) 1.10 K/mm3 0-0.8 EOSINOPHIL # (test code = EO#) 0.28 K/mm3 0.0-0.5 BASOPHIL # (test code = BA#) 0.05 K/mm3 0.0-0.2 NUCLEATED RBC # (test code = NRBC#) 0.00 K/mm3 0.0-0.1 MANUAL DIFF REQUIRED (test code = MDIFF) NO, ONLY SCAN NEEDED DIFFERENTIAL [id number] 05:00:00* Test Item Value Reference Range Comments STAIN ACCEPTABILITY (test code = STN ACCEPTABLE) CABOT RINGS (test code = CAB) MORPHOLOGY COMMENT (test code = MOC) PLATELET ESTIMATE (test code = PLTEST) PLATELET MORPHOLOGY (test code = PLTMORPH) CBC W/AUTO [id number] 05:00:00* Test Item Value Reference Range Comments WHITE BLOOD CELL (test code = WBC) 16.8 K/mm3 4.5-12.5 RED BLOOD CELL (test code = RBC) 4.62 mill/mm3 4.0-5.8 HEMOGLOBIN (test code = HGB) 12.4 gram/dL 13.0-17.5 HEMATOCRIT (test code = HCT) 39.9 % 42.0-52.0 MEAN CELL VOLUME (test code = MCV) 86.4 fL 80-98 MEAN CELL HGB (test code = MCH) 26.8 picogram 27.0-33.0 MEAN CELL HGB CONCETRATION (test code = MCHC) 31.1 gram/dL 33 .0-36.0 RED CELL DISTRIBUTION WIDTH (test code = RDW) 22.1 % 11 .6-16.2 RED CELL DISTRIBUTION WIDTH SD (test code = RDW-SD) 68.3 fL 37.0-51.0 PLATELET COUNT (test code = PLT) 213 K/mm3 150-450 MEAN PLATELET VOLUME (test code = MPV) 9.6 fL 6.7-11.0 NEUTROPHIL % (test code = NT%) 79.8 % 39.0-69.0 IMMATURE GRANULOCYTE % (test code = IG%) 1.6 % 0.0-5.0 LYMPHOCYTE % (test code = LY%) 10.0 % 25.0-55.0 MONOCYTE % (test code = MO%) 6.6 % 0.0-10.0 EOSINOPHIL % (test code = EO%) 1.7 % 0.0-5.0 BASOPHIL % (test code = BA%) 0.3 % 0.0-1.0 NUCLEATED RBC % (test code = NRBC%) 0.0 % 0-0 NEUTROPHIL # (test code = NT#) 13.41 K/mm3 1.8-7.7 IMMATURE GRANULOCYTE # (test code = IG#) 0.27 x10 3/uL 0-0.03 LYMPHOCYTE # (test code = LY#) 1.68 K/mm3 1.0-5.0 MONOCYTE # (test code = MO#) 1.10 K/mm3 0-0.8 EOSINOPHIL # (test code = EO#) 0.28 K/mm3 0.0-0.5 BASOPHIL # (test code = BA#) 0.05 K/mm3 0.0-0.2 NUCLEATED RBC # (test code = NRBC#) 0.00 K/mm3 0.0-0.1 MANUAL DIFF REQUIRED (test code = MDIFF) NO, ONLY SCAN NEEDED DIFFERENTIAL [id number] 05:00:00* Test Item Value Reference Range Comments STAIN ACCEPTABILITY (test code = STN ACCEPTABLE) CABOT RINGS (test code = CAB) MORPHOLOGY COMMENT (test code = MOC) PLATELET ESTIMATE (test code = PLTEST) PLATELET MORPHOLOGY (test code = PLTMORPH) CBC W/AUTO [id number] 05:00:00* Test Item Value Reference Range Comments WHITE BLOOD CELL (test code = WBC) 16.8 K/mm3 4.5-12.5 RED BLOOD CELL (test code = RBC) 4.62 mill/mm3 4.0-5.8 HEMOGLOBIN (test code = HGB) 12.4 gram/dL 13.0-17.5 HEMATOCRIT (test code = HCT) 39.9 % 42.0-52.0 MEAN CELL VOLUME (test code = MCV) 86.4 fL 80-98 MEAN CELL HGB (test code = MCH) 26.8 picogram 27.0-33.0 MEAN CELL HGB CONCETRATION (test code = MCHC) 31.1 gram/dL 33 .0-36.0 RED CELL DISTRIBUTION WIDTH (test code = RDW) 22.1 % 11 .6-16.2 RED CELL DISTRIBUTION WIDTH SD (test code = RDW-SD) 68.3 fL 37.0-51.0 PLATELET COUNT (test code = PLT) 213 K/mm3 150-450 MEAN PLATELET VOLUME (test code = MPV) 9.6 fL 6.7-11.0 NEUTROPHIL % (test code = NT%) 79.8 % 39.0-69.0 IMMATURE GRANULOCYTE % (test code = IG%) 1.6 % 0.0-5.0 LYMPHOCYTE % (test code = LY%) 10.0 % 25.0-55.0 MONOCYTE % (test code = MO%) 6.6 % 0.0-10.0 EOSINOPHIL % (test code = EO%) 1.7 % 0.0-5.0 BASOPHIL % (test code = BA%) 0.3 % 0.0-1.0 NUCLEATED RBC % (test code = NRBC%) 0.0 % 0-0 NEUTROPHIL # (test code = NT#) 13.41 K/mm3 1.8-7.7 IMMATURE GRANULOCYTE # (test code = IG#) 0.27 x10 3/uL 0-0.03 LYMPHOCYTE # (test code = LY#) 1.68 K/mm3 1.0-5.0 MONOCYTE # (test code = MO#) 1.10 K/mm3 0-0.8 EOSINOPHIL # (test code = EO#) 0.28 K/mm3 0.0-0.5 BASOPHIL # (test code = BA#) 0.05 K/mm3 0.0-0.2 NUCLEATED RBC # (test code = NRBC#) 0.00 K/mm3 0.0-0.1 MANUAL DIFF REQUIRED (test code = MDIFF) NO, ONLY SCAN NEEDED DIFFERENTIAL [id number] 05:00:00* Test Item Value Reference Range Comments STAIN ACCEPTABILITY (test code = STN ACCEPTABLE) MORPHOLOGY COMMENT (test code = MOC) PLATELET ESTIMATE (test code = PLTEST) PLATELET MORPHOLOGY (test code = PLTMORPH) CBC W/AUTO [id number] 05:00:00* Test Item Value Reference Range Comments WHITE BLOOD CELL (test code = WBC) 16.8 K/mm3 4.5-12.5 RED BLOOD CELL (test code = RBC) 4.62 mill/mm3 4.0-5.8 HEMOGLOBIN (test code = HGB) 12.4 gram/dL 13.0-17.5 HEMATOCRIT (test code = HCT) 39.9 % 42.0-52.0 MEAN CELL VOLUME (test code = MCV) 86.4 fL 80-98 MEAN CELL HGB (test code = MCH) 26.8 picogram 27.0-33.0 MEAN CELL HGB CONCETRATION (test code = MCHC) 31.1 gram/dL 33 .0-36.0 RED CELL DISTRIBUTION WIDTH (test code = RDW) 22.1 % 11 .6-16.2 RED CELL DISTRIBUTION WIDTH SD (test code = RDW-SD) 68.3 fL 37.0-51.0 PLATELET COUNT (test code = PLT) 213 K/mm3 150-450 MEAN PLATELET VOLUME (test code = MPV) 9.6 fL 6.7-11.0 NEUTROPHIL % (test code = NT%) 79.8 % 39.0-69.0 IMMATURE GRANULOCYTE % (test code = IG%) 1.6 % 0.0-5.0 LYMPHOCYTE % (test code = LY%) 10.0 % 25.0-55.0 MONOCYTE % (test code = MO%) 6.6 % 0.0-10.0 EOSINOPHIL % (test code = EO%) 1.7 % 0.0-5.0 BASOPHIL % (test code = BA%) 0.3 % 0.0-1.0 NUCLEATED RBC % (test code = NRBC%) 0.0 % 0-0 NEUTROPHIL # (test code = NT#) 13.41 K/mm3 1.8-7.7 IMMATURE GRANULOCYTE # (test code = IG#) 0.27 x10 3/uL 0-0.03 LYMPHOCYTE # (test code = LY#) 1.68 K/mm3 1.0-5.0 MONOCYTE # (test code = MO#) 1.10 K/mm3 0-0.8 EOSINOPHIL # (test code = EO#) 0.28 K/mm3 0.0-0.5 BASOPHIL # (test code = BA#) 0.05 K/mm3 0.0-0.2 NUCLEATED RBC # (test code = NRBC#) 0.00 K/mm3 0.0-0.1 MANUAL DIFF REQUIRED (test code = MDIFF) NO, ONLY SCAN NEEDED DIFFERENTIAL [id number] 05:00:00* Test Item Value Reference Range Comments STAIN ACCEPTABILITY (test code = STN ACCEPTABLE) CABOT RINGS (test code = CAB) MORPHOLOGY COMMENT (test code = MOC) PLATELET ESTIMATE (test code = PLTEST) PLATELET MORPHOLOGY (test code = PLTMORPH) CBC W/AUTO [id number] 06:18:00* Test Item Value Reference Range Comments WHITE BLOOD CELL (test code = WBC) 17.3 K/mm3 4.5-12.5 RED BLOOD CELL (test code = RBC) 4.51 mill/mm3 4.0-5.8 HEMOGLOBIN (test code = HGB) 11.9 gram/dL 13.0-17.5 HEMATOCRIT (test code = HCT) 37.7 % 42.0-52.0 MEAN CELL VOLUME (test code = MCV) 83.6 fL 80-98 MEAN CELL HGB (test code = MCH) 26.4 picogram 27.0-33.0 MEAN CELL HGB CONCETRATION (test code = MCHC) 31.6 gram/dL 33 .0-36.0 RED CELL DISTRIBUTION WIDTH (test code = RDW) 22.2 % 11 .6-16.2 RED CELL DISTRIBUTION WIDTH SD (test code = RDW-SD) 65.8 fL 37.0-51.0 PLATELET COUNT (test code = PLT) 216 K/mm3 150-450 MEAN PLATELET VOLUME (test code = MPV) 10.2 fL 6.7-11.0 NEUTROPHIL % (test code = NT%) 82.2 % 39.0-69.0 IMMATURE GRANULOCYTE % (test code = IG%) 1.3 % 0.0-5.0 LYMPHOCYTE % (test code = LY%) 10.4 % 25.0-55.0 MONOCYTE % (test code = MO%) 5.0 % 0.0-10.0 EOSINOPHIL % (test code = EO%) 0.9 % 0.0-5.0 BASOPHIL % (test code = BA%) 0.2 % 0.0-1.0 NUCLEATED RBC % (test code = NRBC%) 0.0 % 0-0 NEUTROPHIL # (test code = NT#) 14.19 K/mm3 1.8-7.7 IMMATURE GRANULOCYTE # (test code = IG#) 0.22 x10 3/uL 0-0.03 LYMPHOCYTE # (test code = LY#) 1.79 K/mm3 1.0-5.0 MONOCYTE # (test code = MO#) 0.87 K/mm3 0-0.8 EOSINOPHIL # (test code = EO#) 0.16 K/mm3 0.0-0.5 BASOPHIL # (test code = BA#) 0.04 K/mm3 0.0-0.2 NUCLEATED RBC # (test code = NRBC#) 0.00 K/mm3 0.0-0.1 MANUAL DIFF REQUIRED (test code = MDIFF) NO, ONLY SCAN NEEDED DIFFERENTIAL [id number] 06:18:00* Test Item Value Reference Range Comments STAIN ACCEPTABILITY (test code = STN ACCEPTABLE) STAIN ACCEPTABL E POIKILOCYTOSIS (test code = POIK) 3+ ELLIPTOCYTES (test code = ELL) 1+ SCHISTOCYTES (test code = DEV) 2+ PLATELET ESTIMATE (test code = PLTEST) ADEQUATE PLATELET MORPHOLOGY (test code = PLTMORPH) NORMAL COMPREHENSIVE METABOLIC [id number] 06:14:00* Test Item Value Reference Range Comments SODIUM (test code = NA) 141 mmol/L 136-145 POTASSIUM (test code = K) 4.3 mmol/L 3.5-5.1 CHLORIDE (test code = CL) 111.0 mmol/L 98-107 CARBON DIOXIDE (test code = CO2) 22.0 mmol/L 21-32 ANION GAP (test code = GAP) 12.3 10-20 GLUCOSE (test code = GLU) 90 mg/dL 74-106 BLOOD UREA NITROGEN (test code = BUN) 20 mg/dL 7-18 GLOMERULAR FILTRATION RATE (test code = GFR) 54 mL/min >=6 0 Estimated GFR by using Modified MDRD formula.Chronic kidney disease is defined as either kidney damageor GFR <60 mL/min/1.73 m2 for >3 months. CREATININE (test code = CREAT) 1.30 mg/dL 0.7-1.3 BUN/CREATININE RATIO (test code = BUN/CREA) 15.4 10-2 0 TOTAL PROTEIN (test code = PROT) 6.4 gram/dL 6.4-8.2 ALBUMIN (test code = ALB) 2.5 g/dL 3.4-5.0 GLOBULIN (test code = GLOB) 3.9 gram/dL 2.7-4.2 ALBUMIN/GLOBULIN RATIO (test code = A/G) 0.6 0.75-1. 50 CALCIUM (test code = CA) 8.9 mg/dL 8.5-10.1 BILIRUBIN TOTAL (test code = BILT) 0.80 mg/dL 0.0-1.0 SGOT/AST (test code = AST) 10 IUnit/L 15-37 SGPT/ALT (test code = ALT) 13 IUnit/L 12-78 ALKALINE PHOSPHATASE TOTAL (test code = ALKP) 91 IUnit/L 45 -117 Note change in reference range due to change in reagent. COMPREHENSIVE METABOLIC [id number] 06:03:00* Test Item Value Reference Range Comments SODIUM (test code = NA) 141 mmol/L 136-145 POTASSIUM (test code = K) 4.3 mmol/L 3.5-5.1 CHLORIDE (test code = CL) 111.0 mmol/L 98-107 CARBON DIOXIDE (test code = CO2) mmol/L 21-32 ANION GAP (test code = GAP) 10-20 GLUCOSE (test code = GLU) mg/dL 74-106 BLOOD UREA NITROGEN (test code = BUN) mg/dL 7-18 GLOMERULAR FILTRATION RATE (test code = GFR) mL/min >=6 0 CREATININE (test code = CREAT) mg/dL 0.7-1.3 BUN/CREATININE RATIO (test code = BUN/CREA) 10-2 0 TOTAL PROTEIN (test code = PROT) gram/dL 6.4-8.2 ALBUMIN (test code = ALB) g/dL 3.4-5.0 GLOBULIN (test code = GLOB) gram/dL 2.7-4.2 ALBUMIN/GLOBULIN RATIO (test code = A/G) 0.75-1. 50 CALCIUM (test code = CA) mg/dL 8.5-10.1 BILIRUBIN TOTAL (test code = BILT) mg/dL 0.0-1.0 SGOT/AST (test code = AST) IUnit/L 15-37 SGPT/ALT (test code = ALT) IUnit/L 12-78 ALKALINE PHOSPHATASE TOTAL (test code = ALKP) IUnit/L 45 -117 CBC W/AUTO [id number] 05:53:00* Test Item Value Reference Range Comments WHITE BLOOD CELL (test code = WBC) 17.3 K/mm3 4.5-12.5 RED BLOOD CELL (test code = RBC) 4.51 mill/mm3 4.0-5.8 HEMOGLOBIN (test code = HGB) 11.9 gram/dL 13.0-17.5 HEMATOCRIT (test code = HCT) 37.7 % 42.0-52.0 MEAN CELL VOLUME (test code = MCV) 83.6 fL 80-98 MEAN CELL HGB (test code = MCH) 26.4 picogram 27.0-33.0 MEAN CELL HGB CONCETRATION (test code = MCHC) 31.6 gram/dL 33 .0-36.0 RED CELL DISTRIBUTION WIDTH (test code = RDW) 22.2 % 11 .6-16.2 RED CELL DISTRIBUTION WIDTH SD (test code = RDW-SD) 65.8 fL 37.0-51.0 PLATELET COUNT (test code = PLT) 216 K/mm3 150-450 MEAN PLATELET VOLUME (test code = MPV) 10.2 fL 6.7-11.0 NEUTROPHIL % (test code = NT%) 82.2 % 39.0-69.0 IMMATURE GRANULOCYTE % (test code = IG%) 1.3 % 0.0-5.0 LYMPHOCYTE % (test code = LY%) 10.4 % 25.0-55.0 MONOCYTE % (test code = MO%) 5.0 % 0.0-10.0 EOSINOPHIL % (test code = EO%) 0.9 % 0.0-5.0 BASOPHIL % (test code = BA%) 0.2 % 0.0-1.0 NUCLEATED RBC % (test code = NRBC%) 0.0 % 0-0 NEUTROPHIL # (test code = NT#) 14.19 K/mm3 1.8-7.7 IMMATURE GRANULOCYTE # (test code = IG#) 0.22 x10 3/uL 0-0.03 LYMPHOCYTE # (test code = LY#) 1.79 K/mm3 1.0-5.0 MONOCYTE # (test code = MO#) 0.87 K/mm3 0-0.8 EOSINOPHIL # (test code = EO#) 0.16 K/mm3 0.0-0.5 BASOPHIL # (test code = BA#) 0.04 K/mm3 0.0-0.2 NUCLEATED RBC # (test code = NRBC#) 0.00 K/mm3 0.0-0.1 MANUAL DIFF REQUIRED (test code = MDIFF) NO, ONLY SCAN NEEDED DIFFERENTIAL [id number] 05:53:00* Test Item Value Reference Range Comments STAIN ACCEPTABILITY (test code = STN ACCEPTABLE) CABOT RINGS (test code = CAB) MORPHOLOGY COMMENT (test code = MOC) PLATELET ESTIMATE (test code = PLTEST) PLATELET MORPHOLOGY (test code = PLTMORPH) CBC W/AUTO [id number] 05:53:00* Test Item Value Reference Range Comments WHITE BLOOD CELL (test code = WBC) 17.3 K/mm3 4.5-12.5 RED BLOOD CELL (test code = RBC) 4.51 mill/mm3 4.0-5.8 HEMOGLOBIN (test code = HGB) 11.9 gram/dL 13.0-17.5 HEMATOCRIT (test code = HCT) 37.7 % 42.0-52.0 MEAN CELL VOLUME (test code = MCV) 83.6 fL 80-98 MEAN CELL HGB (test code = MCH) 26.4 picogram 27.0-33.0 MEAN CELL HGB CONCETRATION (test code = MCHC) 31.6 gram/dL 33 .0-36.0 RED CELL DISTRIBUTION WIDTH (test code = RDW) 22.2 % 11 .6-16.2 RED CELL DISTRIBUTION WIDTH SD (test code = RDW-SD) 65.8 fL 37.0-51.0 PLATELET COUNT (test code = PLT) 216 K/mm3 150-450 MEAN PLATELET VOLUME (test code = MPV) 10.2 fL 6.7-11.0 NEUTROPHIL % (test code = NT%) 82.2 % 39.0-69.0 IMMATURE GRANULOCYTE % (test code = IG%) 1.3 % 0.0-5.0 LYMPHOCYTE % (test code = LY%) 10.4 % 25.0-55.0 MONOCYTE % (test code = MO%) 5.0 % 0.0-10.0 EOSINOPHIL % (test code = EO%) 0.9 % 0.0-5.0 BASOPHIL % (test code = BA%) 0.2 % 0.0-1.0 NUCLEATED RBC % (test code = NRBC%) 0.0 % 0-0 NEUTROPHIL # (test code = NT#) 14.19 K/mm3 1.8-7.7 IMMATURE GRANULOCYTE # (test code = IG#) 0.22 x10 3/uL 0-0.03 LYMPHOCYTE # (test code = LY#) 1.79 K/mm3 1.0-5.0 MONOCYTE # (test code = MO#) 0.87 K/mm3 0-0.8 EOSINOPHIL # (test code = EO#) 0.16 K/mm3 0.0-0.5 BASOPHIL # (test code = BA#) 0.04 K/mm3 0.0-0.2 NUCLEATED RBC # (test code = NRBC#) 0.00 K/mm3 0.0-0.1 MANUAL DIFF REQUIRED (test code = MDIFF) NO, ONLY SCAN NEEDED DIFFERENTIAL [id number] 05:53:00* Test Item Value Reference Range Comments STAIN ACCEPTABILITY (test code = STN ACCEPTABLE) MORPHOLOGY COMMENT (test code = MOC) PLATELET ESTIMATE (test code = PLTEST) PLATELET MORPHOLOGY (test code = PLTMORPH) CBC W/AUTO [id number] 05:52:00* Test Item Value Reference Range Comments WHITE BLOOD CELL (test code = WBC) 17.3 K/mm3 4.5-12.5 RED BLOOD CELL (test code = RBC) 4.51 mill/mm3 4.0-5.8 HEMOGLOBIN (test code = HGB) 11.9 gram/dL 13.0-17.5 HEMATOCRIT (test code = HCT) 37.7 % 42.0-52.0 MEAN CELL VOLUME (test code = MCV) 83.6 fL 80-98 MEAN CELL HGB (test code = MCH) 26.4 picogram 27.0-33.0 MEAN CELL HGB CONCETRATION (test code = MCHC) 31.6 gram/dL 33 .0-36.0 RED CELL DISTRIBUTION WIDTH (test code = RDW) 22.2 % 11 .6-16.2 RED CELL DISTRIBUTION WIDTH SD (test code = RDW-SD) 65.8 fL 37.0-51.0 PLATELET COUNT (test code = PLT) 216 K/mm3 150-450 MEAN PLATELET VOLUME (test code = MPV) 10.2 fL 6.7-11.0 NEUTROPHIL % (test code = NT%) 82.2 % 39.0-69.0 IMMATURE GRANULOCYTE % (test code = IG%) 1.3 % 0.0-5.0 LYMPHOCYTE % (test code = LY%) 10.4 % 25.0-55.0 MONOCYTE % (test code = MO%) 5.0 % 0.0-10.0 EOSINOPHIL % (test code = EO%) 0.9 % 0.0-5.0 BASOPHIL % (test code = BA%) 0.2 % 0.0-1.0 NUCLEATED RBC % (test code = NRBC%) 0.0 % 0-0 NEUTROPHIL # (test code = NT#) 14.19 K/mm3 1.8-7.7 IMMATURE GRANULOCYTE # (test code = IG#) 0.22 x10 3/uL 0-0.03 LYMPHOCYTE # (test code = LY#) 1.79 K/mm3 1.0-5.0 MONOCYTE # (test code = MO#) 0.87 K/mm3 0-0.8 EOSINOPHIL # (test code = EO#) 0.16 K/mm3 0.0-0.5 BASOPHIL # (test code = BA#) 0.04 K/mm3 0.0-0.2 NUCLEATED RBC # (test code = NRBC#) 0.00 K/mm3 0.0-0.1 MANUAL DIFF REQUIRED (test code = MDIFF) NO, ONLY SCAN NEEDED DIFFERENTIAL [id number] 05:52:00* Test Item Value Reference Range Comments STAIN ACCEPTABILITY (test code = STN ACCEPTABLE) CABOT RINGS (test code = CAB) MORPHOLOGY COMMENT (test code = MOC) PLATELET ESTIMATE (test code = PLTEST) PLATELET MORPHOLOGY (test code = PLTMORPH) CBC W/AUTO [id number] 05:52:00* Test Item Value Reference Range Comments WHITE BLOOD CELL (test code = WBC) 17.3 K/mm3 4.5-12.5 RED BLOOD CELL (test code = RBC) 4.51 mill/mm3 4.0-5.8 HEMOGLOBIN (test code = HGB) 11.9 gram/dL 13.0-17.5 HEMATOCRIT (test code = HCT) 37.7 % 42.0-52.0 MEAN CELL VOLUME (test code = MCV) 83.6 fL 80-98 MEAN CELL HGB (test code = MCH) 26.4 picogram 27.0-33.0 MEAN CELL HGB CONCETRATION (test code = MCHC) 31.6 gram/dL 33 .0-36.0 RED CELL DISTRIBUTION WIDTH (test code = RDW) 22.2 % 11 .6-16.2 RED CELL DISTRIBUTION WIDTH SD (test code = RDW-SD) 65.8 fL 37.0-51.0 PLATELET COUNT (test code = PLT) 216 K/mm3 150-450 MEAN PLATELET VOLUME (test code = MPV) 10.2 fL 6.7-11.0 NEUTROPHIL % (test code = NT%) 82.2 % 39.0-69.0 IMMATURE GRANULOCYTE % (test code = IG%) 1.3 % 0.0-5.0 LYMPHOCYTE % (test code = LY%) 10.4 % 25.0-55.0 MONOCYTE % (test code = MO%) 5.0 % 0.0-10.0 EOSINOPHIL % (test code = EO%) 0.9 % 0.0-5.0 BASOPHIL % (test code = BA%) 0.2 % 0.0-1.0 NUCLEATED RBC % (test code = NRBC%) 0.0 % 0-0 NEUTROPHIL # (test code = NT#) 14.19 K/mm3 1.8-7.7 IMMATURE GRANULOCYTE # (test code = IG#) 0.22 x10 3/uL 0-0.03 LYMPHOCYTE # (test code = LY#) 1.79 K/mm3 1.0-5.0 MONOCYTE # (test code = MO#) 0.87 K/mm3 0-0.8 EOSINOPHIL # (test code = EO#) 0.16 K/mm3 0.0-0.5 BASOPHIL # (test code = BA#) 0.04 K/mm3 0.0-0.2 NUCLEATED RBC # (test code = NRBC#) 0.00 K/mm3 0.0-0.1 MANUAL DIFF REQUIRED (test code = MDIFF) NO, ONLY SCAN NEEDED DIFFERENTIAL [id number] 05:52:00* Test Item Value Reference Range Comments STAIN ACCEPTABILITY (test code = STN ACCEPTABLE) CABOT RINGS (test code = CAB) MORPHOLOGY COMMENT (test code = MOC) PLATELET ESTIMATE (test code = PLTEST) PLATELET MORPHOLOGY (test code = PLTMORPH) LACTIC [id number] 19:19:00* Test Item Value Reference Range Comments LACTIC ACID (test code = LACT) 1.5 mmol/L 0.4-1.9 DELAYED DUE TO PHLEB IN ER CODE V.LAB.SC 04/17/19 1855URINALYSIS COMPLETE 2019 19:06:00* Test Item Value Reference Range Comments UA COLOR (test code = COLU) Light-Yellow YELLOW UA APPEARANCE (test code = APPU) CLEAR CLEAR UA GLUCOSE DIPSTICK (test code = DGLUU) NEGATIVE mg/dL NEGATIVE UA BILIRUBIN DIPSTICK (test code = BILU) NEGATIVE mg/dL NEGATIV E UA KETONE DIPSTICK (test code = KETU) NEGATIVE mg/dL NEGATIVE UA SPECIFIC GRAVITY (test code = SGU) 1.012 1.001-1.03 5 UA BLOOD DIPSTICK (test code = LONNIE) Negative mg/dL NEGATIVE UA PH DIPSTICK (test code = NICOLE) 5.0 5.0-8.0 UA PROTEIN DIPSTICK (test code = PROU) NEGATIVE mg/dL NEGATIVE UA UROBILINIOGEN DIPSTICK (test code = URO) Normal mg/dL NEGA TIVE UA NITRITE DIPSTICK (test code = PEDRO) NEGATIVE NEGATIVE UA LEUKOCYTE ESTERASE W REFLEX (test code = LEUUR) 75 Maria Luz/uL (1+) Maria Luz/uL NEGATIVE UA WBC (test code = WBCU) 6-10 per HPF 0-5 UA RBC (test code = RBCU) 0-2 #/HPF 0-5 UA EPITHELIAL CELLS (test code = EPIU) Few (2-5/hpf) per HPF Few UA BACTERIA (test code = BACU) FEW #/HPF NONE UA HYALINE CAST (test code = HYALU) 0-2 #/LPF 0-5 UA MUCUS (test code = MUCU) FEW #/LPF FEW UA YEAST (test code = YEASTU) FEW #/HPF NONE Urine Source? Clean CatchURINALYSIS [id number] 18:56:00* Test Item Value Reference Range Comments UA COLOR (test code = COLU) Light-Yellow YELLOW UA APPEARANCE (test code = APPU) CLEAR CLEAR UA GLUCOSE DIPSTICK (test code = DGLUU) NEGATIVE mg/dL NEGATIVE UA BILIRUBIN DIPSTICK (test code = BILU) NEGATIVE mg/dL NEGATIV E UA KETONE DIPSTICK (test code = KETU) NEGATIVE mg/dL NEGATIVE UA SPECIFIC GRAVITY (test code = SGU) 1.012 1.001-1.03 5 UA BLOOD DIPSTICK (test code = LONNIE) Negative mg/dL NEGATIVE UA PH DIPSTICK (test code = NICOLE) 5.0 5.0-8.0 UA PROTEIN DIPSTICK (test code = PROU) NEGATIVE mg/dL NEGATIVE UA UROBILINIOGEN DIPSTICK (test code = URO) Normal mg/dL NEGA TIVE UA NITRITE DIPSTICK (test code = PEDRO) NEGATIVE NEGATIVE UA LEUKOCYTE ESTERASE W REFLEX (test code = LEUUR) 75 Maria Luz/uL (1+) Maria Luz/uL NEGATIVE UA WBC (test code = WBCU) 6-10 per HPF 0-5 UA RBC (test code = RBCU) 0-2 #/HPF 0-5 UA EPITHELIAL CELLS (test code = EPIU) per HPF Few UA BACTERIA (test code = BACU) FEW #/HPF NONE UA HYALINE CAST (test code = HYALU) 0-2 #/LPF 0-5 UA MUCUS (test code = MUCU) FEW #/LPF FEW UA YEAST (test code = YEASTU) FEW #/HPF NONE Urine Source? Clean CatchURINALYSIS [id number] 18:27:00* Test Item Value Reference Range Comments UA COLOR (test code = COLU) Light-Yellow YELLOW UA APPEARANCE (test code = APPU) CLEAR CLEAR UA GLUCOSE DIPSTICK (test code = DGLUU) NEGATIVE mg/dL NEGATIVE UA BILIRUBIN DIPSTICK (test code = BILU) NEGATIVE mg/dL NEGATIV E UA KETONE DIPSTICK (test code = KETU) NEGATIVE mg/dL NEGATIVE UA SPECIFIC GRAVITY (test code = SGU) 1.012 1.001-1.03 5 UA BLOOD DIPSTICK (test code = LONNEI) Negative mg/dL NEGATIVE UA PH DIPSTICK (test code = NICOLE) 5.0 5.0-8.0 UA PROTEIN DIPSTICK (test code = PROU) NEGATIVE mg/dL NEGATIVE UA UROBILINIOGEN DIPSTICK (test code = URO) Normal mg/dL NEGA TIVE UA NITRITE DIPSTICK (test code = PEDRO) NEGATIVE NEGATIVE UA LEUKOCYTE ESTERASE W REFLEX (test code = LEUUR) 75 Maria Luz/uL (1+) Maria Luz/uL NEGATIVE UA WBC (test code = WBCU) per HPF 0-5 UA RBC (test code = RBCU) per HPF 0-5 UA EPITHELIAL CELLS (test code = EPIU) per HPF Few UA BACTERIA (test code = BACU) per HPF NONE Urine Source? Clean Catch- CT CHEST W/O [id number] 17:32:00 Name: KAMALJIT CAMACHO [facility] : 1945 Age/S: 74 / M [address] Unit #: [id number] Loc: ISIDRA [place] [address] Phys: Ashanti Knight MD Acct: [id number] Di s Date: Status: REG ER PHONE #: Exam Date: 2019 1803 FAX #: Reason: RUL mass EXAMS: CPT CODE: [id number] CT CHEST W/O CONTRAST 23259 REASON FOR EXAM: RUL mass EXAM ORDER DATE: 2019 4:08 PM Ordering MBogdan: Cortez Knight MD PROCEDURE: - CT CHEST W/O CONTRAST COMPARISON: 01/29/2017 FINDINGS: CT images of the chest were o btained without IV contrast. Reconstructed sagittal and coronal images of the chest were provided for interpretation. Dose modulation, iterative re construction, and/or weight based adjustment of the MA/KV was utilized to reduce the radiation dose to as low as reasonably achievable. The heart size is minimally enlarged. No evidence of pericardial effus ion. The thoracic aorta is aorta is unremarkable. No evidence of me diastinal or hilar adenopathy. No evidence of pleural effusion. IMPRESSION: 4.7 x 2 cm lobulated mass in the right upper lobe, new since 01/29/2017 exam.. Minimal pleural calcifications more pronounced on the left. Minimal cardiomegaly and hyperinflated lungs. Cholelithia sis. at 1732 Reported and signed by: Ivan Lyon M.D. CC: Ashanti Caba MD Technologist:Janeth MCCOY(R) CT CTDI: DLP: Trnscb Date/Time: 2019 (1732) Gee FERNANDEZL Orig Print D/T: S: 2019 (4771) PAGE 1 Signed Report BASIC METABOLIC [id number] 16:42:00* Test Item Value Reference Range Comments SODIUM (test code = NA) 138 mmol/L 136-145 POTASSIUM (test code = K) 3.9 mmol/L 3.5-5.1 CHLORIDE (test code = CL) 106.0 mmol/L 98-107 CARBON DIOXIDE (test code = CO2) 23.0 mmol/L 21-32 ANION GAP (test code = GAP) 12.9 10-20 GLUCOSE (test code = GLU) 118 mg/dL 74-106 BLOOD UREA NITROGEN (test code = BUN) 27 mg/dL 7-18 GLOMERULAR FILTRATION RATE (test code = GFR) 39 mL/min >=6 0 Estimated GFR by using Modified MDRD formula.Chronic kidney disease is defined as either kidney damageor GFR <60 mL/min/1.73 m2 for >3 months. CREATININE (test code = CREAT) 1.70 mg/dL 0.7-1.3 BUN/CREATININE RATIO (test code = BUN/CREA) 16.2 10-2 0 CALCIUM (test code = CA) 8.3 mg/dL 8.5-10.1 HEPATIC FUNCTION [id number] 16:42:00* Test Item Value Reference Range Comments TOTAL PROTEIN (test code = PROT) 6.4 gram/dL 6.4-8.2 ALBUMIN (test code = ALB) 2.6 g/dL 3.4-5.0 GLOBULIN (test code = GLOB) 3.8 gram/dL 2.7-4.2 ALBUMIN/GLOBULIN RATIO (test code = A/G) 0.7 0.75-1. 50 BILIRUBIN TOTAL (test code = BILT) 0.70 mg/dL 0.0-1.0 BILIRUBIN DIRECT (test code = BILD) 0.25 mg/dL 0.0-0.20 SGOT/AST (test code = AST) 9 IUnit/L 15-37 SGPT/ALT (test code = ALT) 14 IUnit/L 12-78 ALKALINE PHOSPHATASE TOTAL (test code = ALKP) 93 IUnit/L 45 -117 Note change in reference range due to change in reagent. [id number] 16:42:00* Test Item Value Reference Range Comments LIPASE (test code = LIP) 64 U/L 73.0-393.0 [id number] 16:42:00* Test Item Value Reference Range Comments MAGNESIUM (test code = MAG) 2.0 mg/dL 1.8-2.4 [id number] 16:42:00* Test Item Value Reference Range Comments TROPONIN-I (test code = TROPI) <0.015 ng/mL 0-0.045 PROCALCITONIN (PCT)2019 16:39:00* Test Item Value Reference Range Comments PROCALCITONIN (PCT) (test code = PROCAL) 0.27 ng/ml Concentration Interpretation (ng/mL) <0.51 Sepsis is not likely. Local bacterial infection is possible. (LOW RISK for progression to Sepsis) 0.51 - 2.00 Sepsis is possible, but other conditions are known to elevate PCT as well. (MODERATE RISK for progression to Sepsis) > 2.00 Sepsis is likely, unless other causes are known. (HIGH RISK for progression to Severe Sepsis or Septic Shock) 10.00 High likelihood of Severe Sepsis or Septic or higher Shock. *Increased PCT levels may not always be related to systemic bacterial infection.*Low PCT levels do not automatically exclude the presence of bacterial infection.*All results should be interpreted taking into account the patients history. B-TYPE NATRIURETIC [id number] 16:28:00* Test Item Value Reference Range Comments B-TYPE NATRIURETIC PEPTIDE (test code = BNP) 318.66 pgram/mL 0-1 00 LACTIC [id number] 16:28:00* Test Item Value Reference Range Comments LACTIC ACID (test code = LACT) 2.5 mmol/L 0.4-1.9 R karinaults called to [id number] by QUENTIN 04/17/19 1628Critical results verified and read back by Nurse? Y PROTHROMBIN [id number] 16:20:00* Test Item Value Reference Range Comments PROTHROMBIN TIME PATIENT (test code = PTP) 17.0 seconds 9.0-1 4.0 INTERNATIONAL NORMAL RATIO (test code = INR) 1.4 0.8 -1.2 The therapeutic range for oral anticoagulant therapy formost indications is an international normalized ratio (INR)of between 2.0 and 3.0. The recommended therapeutic INRrange for various clinical situations is listed below: Clinical Situation INR range Pulmonary e mbolism treatment (2.0-3.0)Venous thrombosis treatmentVenous thrombosis prophylaxis (high risk surgery)Prevention of systemic embolism from: Acute myocardial infarction Valvular heart disease Atrial fibrillation Mechanical prosthetic heart valves (2.5-3.5) IS PATIENT ON ANTICOAGULANTS? NTHROMBOPLASTIN TIME [id number] 16:20:00* Test Item Value Reference Range Comments THROMBOPLASTIN TIME PARTIAL (test code = PTT) 29.3 seconds 25 .0-36.5 IS PATIENT ON ANTICOAGULANTS? NBASIC METABOLIC [id number] 16:15:00* Test Item Value Reference Range Comments SODIUM (test code = NA) 138 mmol/L 136-145 POTASSIUM (test code = K) 3.9 mmol/L 3.5-5.1 CHLORIDE (test code = CL) 106.0 mmol/L 98-107 CARBON DIOXIDE (test code = CO2) mmol/L 21-32 ANION GAP (test code = GAP) 10-20 GLUCOSE (test code = GLU) mg/dL 74-106 BLOOD UREA NITROGEN (test code = BUN) mg/dL 7-18 GLOMERULAR FILTRATION RATE (test code = GFR) mL/min >=6 0 CREATININE (test code = CREAT) mg/dL 0.7-1.3 BUN/CREATININE RATIO (test code = BUN/CREA) 10-2 0 CALCIUM (test code = CA) mg/dL 8.5-10.1 HEPATIC FUNCTION [id number] 16:15:00* Test Item Value Reference Range Comments TOTAL PROTEIN (test code = PROT) gram/dL 6.4-8.2 ALBUMIN (test code = ALB) g/dL 3.4-5.0 GLOBULIN (test code = GLOB) gram/dL 2.7-4.2 ALBUMIN/GLOBULIN RATIO (test code = A/G) 0.75-1. 50 BILIRUBIN TOTAL (test code = BILT) mg/dL 0.0-1.0 BILIRUBIN DIRECT (test code = BILD) mg/dL 0.0-0.20 SGOT/AST (test code = AST) IUnit/L 15-37 SGPT/ALT (test code = ALT) IUnit/L 12-78 ALKALINE PHOSPHATASE TOTAL (test code = ALKP) IUnit/L 45 -117 [id number] 16:15:00* Test Item Value Reference Range Comments LIPASE (test code = LIP) U/L 73.0-393.0 [id number] 16:15:00* Test Item Value Reference Range Comments MAGNESIUM (test code = MAG) mg/dL 1.8-2.4 [id number] 16:15:00* Test Item Value Reference Range Comments TROPONIN-I (test code = TROPI) ng/mL 0-0.045 CBC W/O [id number] 16:04:00* Test Item Value Reference Range Comments WHITE BLOOD CELL (test code = WBC) 19.3 K/mm3 4.5-12.5 RED BLOOD CELL (test code = RBC) 4.71 mill/mm3 4.0-5.8 HEMOGLOBIN (test code = HGB) 12.4 gram/dL 13.0-17.5 HEMATOCRIT (test code = HCT) 40.3 % 42.0-52.0 MEAN CELL VOLUME (test code = MCV) 85.6 fL 80-98 MEAN CELL HGB (test code = MCH) 26.3 picogram 27.0-33.0 MEAN CELL HGB CONCETRATION (test code = MCHC) 30.8 gram/dL 33 .0-36.0 RED CELL DISTRIBUTION WIDTH (test code = RDW) 22.2 % 11 .6-16.2 PLATELET COUNT (test code = PLT) 198 K/mm3 150-450 MEAN PLATELET VOLUME (test code = MPV) 9.8 fL 6.7-11.0 POC LACTIC [id number] 15:58:00* Test Item Value Reference Range Comments POC LACTIC ACID (test code = POCLAC) 2.33 MMOL/L 0.4-2.2 - XR CHEST 1 [id number] 15:58:00 FAX: Ashanti Ludwig [phone] [place]: B St: REG Name: KAMALJIT SILVA [facility] : [birth year] Age/S: 74/[facility] [address] [facility]: [id number] Loc: ISIDRA [place] [address] Phys: Ashanti Knight MD Acct: [id number] Dis Date: Status: REG ER PHONE #: [phone] Exam Date: 2019 1550 FAX #: [phone] Reason: WEAKNESS EXAMS: CPT CODE: [id number] XR CHEST 1 V 41056 TECHNIQUE - XR CHEST 1 V . COMPARISON: Chest x-ray 10/09/2018 HISTORY: 74 years Male WEAKNESS FINDINGS: Lungs: 1.5 cm irregular mass right upper lobe suggested. Recommend CT chest to further evaluate. Neoplastic process cannot be excluded. Lungs are normal in volume. Mediastinum and fritz: No enlargement or other mass. Cardiovascular structures: Mild cardiomegaly. No abnormalities in vascular structures. Pleura/CP angles: Clear. No pneumothorax. Bones: No osseous abnormalities. Soft tissues: No abnormalities. Tubes and lines: Left subclavian pacer wires in place. Other: None. IMPRESSION: 1.5 cm irr egular mass right upper lobe suggested. Recommend CT chest to further ev aluate. Neoplastic process cannot be excluded. at 8205 Reported and s igned by: Deonte Pringle M.D. CC: Ashanti Knight MD Technologist: RT LUDWIG(R) Trnscrd Date/Time/By: 2019 (1231) : By: Sid Moon Print D/T : S: 2019 (3438) PAGE 1 Sig enma Report - CT ABD PELVIS W/O [id number] 14:37:00 Name: KAMALJIT CAMACHO [facility] : 1945 Age/S: 73 / M [address] [facility]: [id number] Loc: ISIDRA [place] [address] Phys: Araseli Dumont MD Acct: [id number] Dis Date: Status: REG ER PHONE #: [phone] Exam Date: 03/09/2019 1422 FAX #: [phone] Reason: hematuria EXAMS: CPT CODE: [id number] CT ABD PELVIS W/O CONT 95004 HISTORY: Hematuria. COMPARISON: CT scan from July 05, 2018. CT of abdomen and pelvis: Stone protocol. Automated exposure control. CT of abdomen: The lung bases demonstrating scarring and COPD. Noncontrast liver is unremarkable. The liver measured 17 cm in length. Gallstone noted again within the gallbladder without inflammatory changes. Spleen is not enlarged. The stomach distended incompletely however it is normal in appearance. 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 Noncontrast pancreas and adrenals are normal. Atrophied pancreas with no ductal dilatation. Retroperitoneal wilda calcifications posterior to the pancreatic head noted again. These are seen superior to the duodenum. Unremarkable adrenals. Kidneys are free from hydroureteronephrosis. Left renal pelvic calcification measured 1.7 cm and lower pole calyceal stone measuring 1.57. Bilateral renal vascular calcifications. 2 to 3 mm calyceal stones on the right side as well. Chronic perinephric fat stranding bilaterally. No pathologic adenopathy. Heavy atherosclerotic calcifications of the abdominal and pelvic vasculature. No bowel obstruction. No colitis, diverticulitis or enteritis. Constipation. Anastomotic sutures within the jejunum with mild fluid distention. CT PELVIS: Appendix is not visible but no inflammatory changes. Pelvic bowel loops are unobstructed. Sigmoid diverticulosis. No diverticulitis. Unremarkable urinary bladder. The prostate is not enlarged. No pelvic pathologic adenopathy. No free fluid or free air. Subcutaneous tissues and the musculature are normal in appearance. No lytic or blastic lesions are noted within the bony skeleton. Gamma PAGE 1 Si gned Report (CONTINUED) Name: KAMALJIT CAMACHO [facility] : 1945 Age/S: 73 / M [address] [facility]: [id number] Loc: ISIDRA [place] [address] Phys: Araseli Dumont MD Acct: [id number] Dis Date: Status: REG ER PHONE #: [phone] Exam Date: 03/09/2019 1422 FAX #: [phone] Reason: hematuria EXAMS: CPT CODE: [id number] CT ABD PELVIS W/O CONT 56420 <Continued> nail within the right hip. DJD. Osteopenia. IMPRESSION: No hydroureteronephrosis on either side. 1.7 cm left renal pelvic calcification and 1.5 cm right lower pole calyceal stone. 3 to 5 mm right calyceal stones. Chronic perinephric fat stranding. No obstructing ureteral stones. Decompressed urinary bladder is limited. Appendix is not visible but no inflammatory changes. Pelvic bowel loops are unobstructed. at 1437 Reported and signed by: Maico Scott M.D. CC: Araseli Dumont MD Technologist:Delia MARTÍNEZ(R)(CT) CTDI: DLP: Trnscb Date/Time: 03/09/2019 (2697) t.[email or web address].[email or web address] Orig Print D/T: S: 03/09/2019 (1887) PAGE 2 Signed Report URINALYSIS [id number] 13:23:00* Test Item Value Reference Range Comments UA COLOR (test code = COLU) YELLOW YELLOW UA APPEARANCE (test code = APPU) TURBID CLEAR UA GLUCOSE DIPSTICK (test code = DGLUU) NEGATIVE mg/dL NEGATIVE UA BILIRUBIN DIPSTICK (test code = BILU) NEGATIVE mg/dL NEGATIV E UA KETONE DIPSTICK (test code = KETU) NEGATIVE mg/dL NEGATIVE UA SPECIFIC GRAVITY (test code = SGU) 1.017 1.001-1.03 5 UA BLOOD DIPSTICK (test code = LONNIE) 0.5 mg/dL (2+) mg/dL NEGATIV E UA PH DIPSTICK (test code = NICOLE) 5.5 5.0-8.0 UA PROTEIN DIPSTICK (test code = PROU) 30 (1+) mg/dL NEGATIVE UA UROBILINIOGEN DIPSTICK (test code = URO) Normal mg/dL NEGA TIVE UA NITRITE DIPSTICK (test code = PEDRO) NEGATIVE NEGATIVE UA LEUKOCYTE ESTERASE W REFLEX (test code = LEUUR) 500 Maria Luz/u L (3+) Maria Luz/uL NEGATIVE UA WBC (test code = WBCU) >200 per HPF 0-5 UA RBC (test code = RBCU) >200 #/HPF 0-5 UA WBC CLUMPS (test code = WBCUCL) >10 /HPF NONE UA EPITHELIAL CELLS (test code = EPIU) Few (2-5/hpf) per HPF FEW UA BACTERIA (test code = BACU) MODERATE #/HPF NONE UA RENAL CELLS (test code = NICKO) 0-2 #/HPF 0-5 UA MUCUS (test code = MUCU) FEW #/LPF FEW UA YEAST (test code = YEASTU) FEW #/HPF NONE Urine Source? Clean CatchCOMPREHENSIVE METABOLIC [id number] 11:18:00* Test Item Value Reference Range Comments SODIUM (test code = NA) 143 mmol/L 136-145 POTASSIUM (test code = K) 4.1 mmol/L 3.5-5.1 Speci men 1+ Hemolysed.Some results MAY NOT be accurate due to hemolysis. CHLORIDE (test code = CL) 110.0 mmol/L 98-107 CARBON DIOXIDE (test code = CO2) 26.0 mmol/L 21-32 ANION GAP (test code = GAP) 11.1 10-20 GLUCOSE (test code = GLU) 88 mg/dL 74-106 BLOOD UREA NITROGEN (test code = BUN) 27 mg/dL 7-18 GLOMERULAR FILTRATION RATE (test code = GFR) 49 mL/min >=6 0 Estimated GFR by using Modified MDRD formula.Chronic kidney disease is defined as either kidney damageor GFR <60 mL/min/1.73 m2 for >3 months. CREATININE (test code = CREAT) 1.40 mg/dL 0.7-1.3 BUN/CREATININE RATIO (test code = BUN/CREA) 19.3 10-2 0 TOTAL PROTEIN (test code = PROT) 6.1 gram/dL 6.4-8.2 ALBUMIN (test code = ALB) 2.4 g/dL 3.4-5.0 GLOBULIN (test code = GLOB) 3.7 gram/dL 2.7-4.2 ALBUMIN/GLOBULIN RATIO (test code = A/G) 0.7 0.75-1. 50 CALCIUM (test code = CA) 8.6 mg/dL 8.5-10.1 BILIRUBIN TOTAL (test code = BILT) 0.60 mg/dL 0.0-1.0 SGOT/AST (test code = AST) 32 IUnit/L 15-37 SGPT/ALT (test code = ALT) 29 IUnit/L 12-78 ALKALINE PHOSPHATASE TOTAL (test code = ALKP) 100 IUnit/L 45 -117 Note change in reference range due to change in reagent. [id number] 11:18:00* Test Item Value Reference Range Comments LIPASE (test code = LIP) 151 U/L 73.0-393.0 COMPREHENSIVE METABOLIC [id number] 11:11:00* Test Item Value Reference Range Comments SODIUM (test code = NA) 143 mmol/L 136-145 POTASSIUM (test code = K) 4.1 mmol/L 3.5-5.1 Speci men 1+ Hemolysed.Some results MAY NOT be accurate due to hemolysis. CHLORIDE (test code = CL) 110.0 mmol/L 98-107 CARBON DIOXIDE (test code = CO2) mmol/L 21-32 ANION GAP (test code = GAP) 10-20 GLUCOSE (test code = GLU) mg/dL 74-106 BLOOD UREA NITROGEN (test code = BUN) mg/dL 7-18 GLOMERULAR FILTRATION RATE (test code = GFR) mL/min >=6 0 CREATININE (test code = CREAT) mg/dL 0.7-1.3 BUN/CREATININE RATIO (test code = BUN/CREA) 10-2 0 TOTAL PROTEIN (test code = PROT) gram/dL 6.4-8.2 ALBUMIN (test code = ALB) g/dL 3.4-5.0 GLOBULIN (test code = GLOB) gram/dL 2.7-4.2 ALBUMIN/GLOBULIN RATIO (test code = A/G) 0.75-1. 50 CALCIUM (test code = CA) mg/dL 8.5-10.1 BILIRUBIN TOTAL (test code = BILT) mg/dL 0.0-1.0 SGOT/AST (test code = AST) IUnit/L 15-37 SGPT/ALT (test code = ALT) IUnit/L 12-78 ALKALINE PHOSPHATASE TOTAL (test code = ALKP) IUnit/L 45 -117 [id number] 11:11:00* Test Item Value Reference Range Comments LIPASE (test code = LIP) U/L 73.0-393.0 CBC W/AUTO [id number] 11:07:00* Test Item Value Reference Range Comments WHITE BLOOD CELL (test code = WBC) 14.8 K/mm3 4.5-12.5 RED BLOOD CELL (test code = RBC) 4.75 mill/mm3 4.0-5.8 HEMOGLOBIN (test code = HGB) 12.0 gram/dL 13.0-17.5 HEMATOCRIT (test code = HCT) 38.3 % 42.0-52.0 MEAN CELL VOLUME (test code = MCV) 80.6 fL 80-98 MEAN CELL HGB (test code = MCH) 25.3 picogram 27.0-33.0 MEAN CELL HGB CONCETRATION (test code = MCHC) 31.3 gram/dL 33 .0-36.0 RED CELL DISTRIBUTION WIDTH (test code = RDW) 19.9 % 11 .6-16.2 RED CELL DISTRIBUTION WIDTH SD (test code = RDW-SD) 57.8 fL 37.0-51.0 PLATELET COUNT (test code = PLT) 241 K/mm3 150-450 MEAN PLATELET VOLUME (test code = MPV) 9.3 fL 6.7-11.0 NEUTROPHIL % (test code = NT%) 82.3 % 39.0-69.0 IMMATURE GRANULOCYTE % (test code = IG%) 0.7 % 0.0-5.0 LYMPHOCYTE % (test code = LY%) 9.8 % 25.0-55.0 MONOCYTE % (test code = MO%) 5.5 % 0.0-10.0 EOSINOPHIL % (test code = EO%) 1.6 % 0.0-5.0 BASOPHIL % (test code = BA%) 0.1 % 0.0-1.0 NUCLEATED RBC % (test code = NRBC%) 0.0 % 0-0 NEUTROPHIL # (test code = NT#) 12.14 K/mm3 1.8-7.7 IMMATURE GRANULOCYTE # (test code = IG#) 0.10 x10 3/uL 0-0.03 LYMPHOCYTE # (test code = LY#) 1.45 K/mm3 1.0-5.0 MONOCYTE # (test code = MO#) 0.81 K/mm3 0-0.8 EOSINOPHIL # (test code = EO#) 0.24 K/mm3 0.0-0.5 BASOPHIL # (test code = BA#) 0.02 K/mm3 0.0-0.2 NUCLEATED RBC # (test code = NRBC#) 0.00 K/mm3 0.0-0.1 MANUAL DIFF REQUIRED (test code = MDIFF) NO - XR FOOT 3 + V [id number] 10:42:00 FAX: Araseli Fragoso [phone] [place]: St: PRE Name: Virgil MATEOKAMALJIT ESTES [facility] : [birth year] Age/S: 73/M [address] [facility] Unit #: [id number] Loc: [place] [address] Phys: Araseli Dumont MD Acct: [id number] Dis Date: Status: PRE ER PHONE #: [phone] Exam Date: 03/09/2019 1021 FAX #: [phone] Reason: fall, R foot pain EXAMS: CPT CODE: [id number] XR FOOT 3 + [place] [address]55 HISTORY: Fall and pain. COMPARISON: None available. 3 views of the right foot: Acute traumatic nondisplaced fracture of the medial base of the 1st proximal phalanx without intra-articular extension. Diffuse soft tissue swelling of the 1st digit. Polyarticular joint space narrowing. Pes plan us. Os peroneum. Vascular calcifications. Osteopenia. No ankle joint f luid. IMPRESSION: Acute traumatic nondisplaced fracture of the medial base of the 1st proximal phalanx without articul ar extension. Diffuse soft tissue swelling. at 1042 Report ed and signed by: Maico Scott M.D. CC: Araseli Dumont MD Technologist: Sachin Gracia RT(R) Trnscrd Date/Time/By: 03/09/2019 (4287) : By: CeleTH4 Orig Print D/T: S: 03/09/2019 (3950) PAGE 1 Signed Report COAGULATION TIME [id number] 12:04:00* Test Item Value Reference Range Comments COAGULATION TIME ACTIVATED (test code = ACT) 371 seconds 62. 8-88.0 CBC W/AUTO [id number] 10:38:00* Test Item Value Reference Range Comments WHITE BLOOD CELL (test code = WBC) 14.8 K/mm3 4.5-12.5 RED BLOOD CELL (test code = RBC) 5.47 mill/mm3 4.0-5.8 HEMOGLOBIN (test code = HGB) 13.7 gram/dL 13.0-17.5 HEMATOCRIT (test code = HCT) 45.3 % 42.0-52.0 MEAN CELL VOLUME (test code = MCV) 82.8 fL 80-98 MEAN CELL HGB (test code = MCH) 25.0 picogram 27.0-33.0 MEAN CELL HGB CONCETRATION (test code = MCHC) 30.2 gram/dL 33 .0-36.0 RED CELL DISTRIBUTION WIDTH (test code = RDW) 20.4 % 11 .6-16.2 RED CELL DISTRIBUTION WIDTH SD (test code = RDW-SD) 59.7 fL 37.0-51.0 PLATELET COUNT (test code = PLT) 240 K/mm3 150-450 MEAN PLATELET VOLUME (test code = MPV) 9.4 fL 6.7-11.0 NEUTROPHIL % (test code = NT%) 73.0 % 39.0-69.0 IMMATURE GRANULOCYTE % (test code = IG%) 0.5 % 0.0-5.0 LYMPHOCYTE % (test code = LY%) 16.3 % 25.0-55.0 MONOCYTE % (test code = MO%) 7.3 % 0.0-10.0 EOSINOPHIL % (test code = EO%) 2.4 % 0.0-5.0 BASOPHIL % (test code = BA%) 0.5 % 0.0-1.0 NUCLEATED RBC % (test code = NRBC%) 0.0 % 0-0 NEUTROPHIL # (test code = NT#) 10.80 K/mm3 1.8-7.7 IMMATURE GRANULOCYTE # (test code = IG#) 0.08 x10 3/uL 0-0.03 LYMPHOCYTE # (test code = LY#) 2.41 K/mm3 1.0-5.0 MONOCYTE # (test code = MO#) 1.08 K/mm3 0-0.8 EOSINOPHIL # (test code = EO#) 0.35 K/mm3 0.0-0.5 BASOPHIL # (test code = BA#) 0.08 K/mm3 0.0-0.2 NUCLEATED RBC # (test code = NRBC#) 0.00 K/mm3 0.0-0.1 MANUAL DIFF REQUIRED (test code = MDIFF) NO, ONLY SCAN NEEDED BILDIFFERENTIAL [id number] 10:38:00* Test Item Value Reference Range Comments STAIN ACCEPTABILITY (test code = STN ACCEPTABLE) STAIN ACCEPTABL E ANISOCYTOSIS (test code = ANISO) 1+ MICROCYTOSIS (test code = MICR) 1+ PLATELET ESTIMATE (test code = PLTEST) ADEQUATE PLATELET MORPHOLOGY (test code = PLTMORPH) SIZE VARIABLE BILCBC W/AUTO [id number] 10:35:00* Test Item Value Reference Range Comments WHITE BLOOD CELL (test code = WBC) 14.8 K/mm3 4.5-12.5 RED BLOOD CELL (test code = RBC) 5.47 mill/mm3 4.0-5.8 HEMOGLOBIN (test code = HGB) 13.7 gram/dL 13.0-17.5 HEMATOCRIT (test code = HCT) 45.3 % 42.0-52.0 MEAN CELL VOLUME (test code = MCV) 82.8 fL 80-98 MEAN CELL HGB (test code = MCH) 25.0 picogram 27.0-33.0 MEAN CELL HGB CONCETRATION (test code = MCHC) 30.2 gram/dL 33 .0-36.0 RED CELL DISTRIBUTION WIDTH (test code = RDW) 20.4 % 11 .6-16.2 RED CELL DISTRIBUTION WIDTH SD (test code = RDW-SD) 59.7 fL 37.0-51.0 PLATELET COUNT (test code = PLT) 240 K/mm3 150-450 MEAN PLATELET VOLUME (test code = MPV) 9.4 fL 6.7-11.0 NEUTROPHIL % (test code = NT%) 73.0 % 39.0-69.0 IMMATURE GRANULOCYTE % (test code = IG%) 0.5 % 0.0-5.0 LYMPHOCYTE % (test code = LY%) 16.3 % 25.0-55.0 MONOCYTE % (test code = MO%) 7.3 % 0.0-10.0 EOSINOPHIL % (test code = EO%) 2.4 % 0.0-5.0 BASOPHIL % (test code = BA%) 0.5 % 0.0-1.0 NUCLEATED RBC % (test code = NRBC%) 0.0 % 0-0 NEUTROPHIL # (test code = NT#) 10.80 K/mm3 1.8-7.7 IMMATURE GRANULOCYTE # (test code = IG#) 0.08 x10 3/uL 0-0.03 LYMPHOCYTE # (test code = LY#) 2.41 K/mm3 1.0-5.0 MONOCYTE # (test code = MO#) 1.08 K/mm3 0-0.8 EOSINOPHIL # (test code = EO#) 0.35 K/mm3 0.0-0.5 BASOPHIL # (test code = BA#) 0.08 K/mm3 0.0-0.2 NUCLEATED RBC # (test code = NRBC#) 0.00 K/mm3 0.0-0.1 MANUAL DIFF REQUIRED (test code = MDIFF) NO, ONLY SCAN NEEDED BILDIFFERENTIAL [id number] 10:35:00* Test Item Value Reference Range Comments STAIN ACCEPTABILITY (test code = STN ACCEPTABLE) MORPHOLOGY COMMENT (test code = MOC) PLATELET ESTIMATE (test code = PLTEST) PLATELET MORPHOLOGY (test code = PLTMORPH) BILCBC W/AUTO [id number] 10:34:00* Test Item Value Reference Range Comments WHITE BLOOD CELL (test code = WBC) 14.8 K/mm3 4.5-12.5 RED BLOOD CELL (test code = RBC) 5.47 mill/mm3 4.0-5.8 HEMOGLOBIN (test code = HGB) 13.7 gram/dL 13.0-17.5 HEMATOCRIT (test code = HCT) 45.3 % 42.0-52.0 MEAN CELL VOLUME (test code = MCV) 82.8 fL 80-98 MEAN CELL HGB (test code = MCH) 25.0 picogram 27.0-33.0 MEAN CELL HGB CONCETRATION (test code = MCHC) 30.2 gram/dL 33 .0-36.0 RED CELL DISTRIBUTION WIDTH (test code = RDW) 20.4 % 11 .6-16.2 RED CELL DISTRIBUTION WIDTH SD (test code = RDW-SD) 59.7 fL 37.0-51.0 PLATELET COUNT (test code = PLT) 240 K/mm3 150-450 MEAN PLATELET VOLUME (test code = MPV) 9.4 fL 6.7-11.0 NEUTROPHIL % (test code = NT%) 73.0 % 39.0-69.0 IMMATURE GRANULOCYTE % (test code = IG%) 0.5 % 0.0-5.0 LYMPHOCYTE % (test code = LY%) 16.3 % 25.0-55.0 MONOCYTE % (test code = MO%) 7.3 % 0.0-10.0 EOSINOPHIL % (test code = EO%) 2.4 % 0.0-5.0 BASOPHIL % (test code = BA%) 0.5 % 0.0-1.0 NUCLEATED RBC % (test code = NRBC%) 0.0 % 0-0 NEUTROPHIL # (test code = NT#) 10.80 K/mm3 1.8-7.7 IMMATURE GRANULOCYTE # (test code = IG#) 0.08 x10 3/uL 0-0.03 LYMPHOCYTE # (test code = LY#) 2.41 K/mm3 1.0-5.0 MONOCYTE # (test code = MO#) 1.08 K/mm3 0-0.8 EOSINOPHIL # (test code = EO#) 0.35 K/mm3 0.0-0.5 BASOPHIL # (test code = BA#) 0.08 K/mm3 0.0-0.2 NUCLEATED RBC # (test code = NRBC#) 0.00 K/mm3 0.0-0.1 MANUAL DIFF REQUIRED (test code = MDIFF) NO, ONLY SCAN NEEDED BILDIFFERENTIAL [id number] 10:34:00* Test Item Value Reference Range Comments STAIN ACCEPTABILITY (test code = STN ACCEPTABLE) MORPHOLOGY COMMENT (test code = MOC) PLATELET ESTIMATE (test code = PLTEST) PLATELET MORPHOLOGY (test code = PLTMORPH) BILCB W/AUTO [id number] 10:34:00* Test Item Value Reference Range Comments WHITE BLOOD CELL (test code = WBC) 14.8 K/mm3 4.5-12.5 RED BLOOD CELL (test code = RBC) 5.47 mill/mm3 4.0-5.8 HEMOGLOBIN (test code = HGB) 13.7 gram/dL 13.0-17.5 HEMATOCRIT (test code = HCT) 45.3 % 42.0-52.0 MEAN CELL VOLUME (test code = MCV) 82.8 fL 80-98 MEAN CELL HGB (test code = MCH) 25.0 picogram 27.0-33.0 MEAN CELL HGB CONCETRATION (test code = MCHC) 30.2 gram/dL 33 .0-36.0 RED CELL DISTRIBUTION WIDTH (test code = RDW) 20.4 % 11 .6-16.2 RED CELL DISTRIBUTION WIDTH SD (test code = RDW-SD) 59.7 fL 37.0-51.0 PLATELET COUNT (test code = PLT) 240 K/mm3 150-450 MEAN PLATELET VOLUME (test code = MPV) 9.4 fL 6.7-11.0 NEUTROPHIL % (test code = NT%) 73.0 % 39.0-69.0 IMMATURE GRANULOCYTE % (test code = IG%) 0.5 % 0.0-5.0 LYMPHOCYTE % (test code = LY%) 16.3 % 25.0-55.0 MONOCYTE % (test code = MO%) 7.3 % 0.0-10.0 EOSINOPHIL % (test code = EO%) 2.4 % 0.0-5.0 BASOPHIL % (test code = BA%) 0.5 % 0.0-1.0 NUCLEATED RBC % (test code = NRBC%) 0.0 % 0-0 NEUTROPHIL # (test code = NT#) 10.80 K/mm3 1.8-7.7 IMMATURE GRANULOCYTE # (test code = IG#) 0.08 x10 3/uL 0-0.03 LYMPHOCYTE # (test code = LY#) 2.41 K/mm3 1.0-5.0 MONOCYTE # (test code = MO#) 1.08 K/mm3 0-0.8 EOSINOPHIL # (test code = EO#) 0.35 K/mm3 0.0-0.5 BASOPHIL # (test code = BA#) 0.08 K/mm3 0.0-0.2 NUCLEATED RBC # (test code = NRBC#) 0.00 K/mm3 0.0-0.1 MANUAL DIFF REQUIRED (test code = MDIFF) NO, ONLY SCAN NEEDED BILDIFFERENTIAL [id number] 10:34:00* Test Item Value Reference Range Comments STAIN ACCEPTABILITY (test code = STN ACCEPTABLE) CABOT RINGS (test code = CAB) MORPHOLOGY COMMENT (test code = MOC) PLATELET ESTIMATE (test code = PLTEST) PLATELET MORPHOLOGY (test code = PLTMORPH) BILPROTHROMBIN [id number] 07:52:00* Test Item Value Reference Range Comments PROTHROMBIN TIME PATIENT (test code = PTP) 14.1 seconds 9.0-1 4.0 INTERNATIONAL NORMAL RATIO (test code = INR) 1.2 0.8 -1.2 The therapeutic range for oral anticoagulant therapy formost indications is an international normalized ratio (INR)of between 2.0 and 3.0. The recommended therapeutic INRrange for various clinical situations is listed below: Clinical Situation INR range Pulmonary e mbolism treatment (2.0-3.0)Venous thrombosis treatmentVenous thrombosis prophylaxis (high risk surgery)Prevention of systemic embolism from: Acute myocardial infarction Valvular heart disease Atrial fibrillation Mechanical prosthetic heart valves (2.5-3.5) THROMBOPLASTIN TIME [id number] 07:52:00* Test Item Value Reference Range Comments THROMBOPLASTIN TIME PARTIAL (test code = PTT) 35.1 seconds 25 .0-36.5 COMPREHENSIVE METABOLIC [id number] 07:44:00* Test Item Value Reference Range Comments SODIUM (test code = NA) 143 mmol/L 136-145 POTASSIUM (test code = K) 3.9 mmol/L 3.5-5.1 CHLORIDE (test code = CL) 110.0 mmol/L 98-107 CARBON DIOXIDE (test code = CO2) 28.0 mmol/L 21-32 ANION GAP (test code = GAP) 8.9 10-20 GLUCOSE (test code = GLU) 79 mg/dL 74-106 BLOOD UREA NITROGEN (test code = BUN) 16 mg/dL 7-18 GLOMERULAR FILTRATION RATE (test code = GFR) > 60 mL/min >=6 0 Estimated GFR by using Modified MDRD formula.Chronic kidney disease is defined as either kidney damageor GFR <60 mL/min/1.73 m2 for >3 months. CREATININE (test code = CREAT) 1.00 mg/dL 0.7-1.3 BUN/CREATININE RATIO (test code = BUN/CREA) 16.0 10-2 0 TOTAL PROTEIN (test code = PROT) 6.7 gram/dL 6.4-8.2 ALBUMIN (test code = ALB) 3.5 g/dL 3.4-5.0 GLOBULIN (test code = GLOB) 3.2 gram/dL 2.7-4.2 ALBUMIN/GLOBULIN RATIO (test code = A/G) 1.1 0.75-1. 50 CALCIUM (test code = CA) 8.6 mg/dL 8.5-10.1 BILIRUBIN TOTAL (test code = BILT) 0.80 mg/dL 0.0-1.0 SGOT/AST (test code = AST) 12 IUnit/L 15-37 SGPT/ALT (test code = ALT) 15 IUnit/L 12-78 ALKALINE PHOSPHATASE TOTAL (test code = ALKP) 118 IUnit/L 45 -117 Note change in reference range due to change in reagent. LIPID PROFILE (CORONARY RISK)2019-02-25 07:44:00* Test Item Value Reference Range Comments TRIGLYCERIDES (test code = TRIG) 74 mg/dL 20-150 CHOLESTEROL (test code = CHOL) 98 mg/dL 0-200 CHOLESTEROL/HDL RATIO (test code = CHOLHDL) 2.0 RATIO 0-4. 9 RISK ASSOCIATED WITH CHOL/HDL RATIOS: Risk Male Female1/2 AVERAGE 3.43 3.27AVERAGE 4.97 4.442X AVERAGE 9.55 7.053X AVERAGE 23.39 11.04 REFERENCE VALUE IS RELATED TO RISK LEVELS ASRECOMMENDED BY THE [facility]. HEART, LUNG, AND BLOOD INST. HDL CHOLESTEROL (test code = HDL) 40 mg/dL 40-60 LIPOPROTEIN LDL (test code = LDL) 51 mg/dL 100-129 Reference Interval: mg/dL mmol/L Optimal <100 <2.6Near/above optimal 100-129 2.6- 3.3Borderline High 130-159 3.4-4.1High 160-189 4.1-4.9Very High >=190 >=4.9========= This LDL result is a direct measurement.========= COMPREHENSIVE METABOLIC [id number] 07:33:00* Test Item Value Reference Range Comments SODIUM (test code = NA) 143 mmol/L 136-145 POTASSIUM (test code = K) 3.9 mmol/L 3.5-5.1 CHLORIDE (test code = CL) 110.0 mmol/L 98-107 CARBON DIOXIDE (test code = CO2) mmol/L 21-32 ANION GAP (test code = GAP) 10-20 GLUCOSE (test code = GLU) mg/dL 74-106 BLOOD UREA NITROGEN (test code = BUN) mg/dL 7-18 GLOMERULAR FILTRATION RATE (test code = GFR) mL/min >=6 0 CREATININE (test code = CREAT) mg/dL 0.7-1.3 BUN/CREATININE RATIO (test code = BUN/CREA) 10-2 0 TOTAL PROTEIN (test code = PROT) gram/dL 6.4-8.2 ALBUMIN (test code = ALB) g/dL 3.4-5.0 GLOBULIN (test code = GLOB) gram/dL 2.7-4.2 ALBUMIN/GLOBULIN RATIO (test code = A/G) 0.75-1. 50 CALCIUM (test code = CA) mg/dL 8.5-10.1 BILIRUBIN TOTAL (test code = BILT) mg/dL 0.0-1.0 SGOT/AST (test code = AST) IUnit/L 15-37 SGPT/ALT (test code = ALT) IUnit/L 12-78 ALKALINE PHOSPHATASE TOTAL (test code = ALKP) IUnit/L 45 -117 LIPID PROFILE (CORONARY RISK)2019-02-25 07:33:00* Test Item Value Reference Range Comments TRIGLYCERIDES (test code = TRIG) mg/dL 20-150 CHOLESTEROL (test code = CHOL) mg/dL 0-200 CHOLESTEROL/HDL RATIO (test code = CHOLHDL) RATIO 0-4. 9 HDL CHOLESTEROL (test code = HDL) mg/dL 40-60 LIPOPROTEIN LDL (test code = LDL) mg/dL 100-129 [id number] 12:07:00 RUN DATE: 06/27/18 [place] [employer] [facility] PAGE 1 RUN TIME: 1207 Specimen Inqui ry RUN USER: INTERFACE PATIENT: JANICEKAMALJIT ACCT #: V [id number] LOC: [place] U #: [id number] AGE/SX: 73/M ROOM: 2090 RE06/19/18REG DR: Hu Duarte MD : 43 BED: A DIS: STATUS: ADM IN TLOC: SPEC #: [id number] RECD: 06/26/18 STATUS: PAUL REDiane #: [id number] ALESSANDRO: 06/25/18 [facility] DR: Tex Rivers eotino ENTERED: 06/26/18 SP TYPE: CALCULI OTHR DR: Chon Miranda MD, Herbert LeonardORDERED: GROSS COPIES TO: Chon Nam MD [address] [address] Isiah [address] [place], [place] [id number] PROCEDURES : GROSS (06/26/18) TISSUES: LEFT KIDNEY - STONE CLINICAL HISTORY COLLECTION DATE: 06/25/18 LEFT URETERAL STONE FINAL DIAG NOSIS Left kidney stone fragment, removal: CALCULOUS FOR GROSS IDENTIF ICATION ONLY DONTRELL/sm D 33132 MACROSCOPIC The specimen is re ceived fresh labeled with the patient's name and identified as "L kidney stone fragment". It consists of a single gomes irregular stone measuring 0.3 cm in g reatest diameter. The specimen will be sent for stone analysis. GROSS PERFORMED AT [facility] CONTINUED ON NEXT PAGE RUN DATE: 06/27/18 [facility] PAGE 2 RUN TIME: 1207 Specimen Inquiry RUN USER: INTERFACE SPEC #: [id number] PATIE NT: KAMALJIT CAMACHO #[id number] (Continued) MACROSCOPIC (Continued) [facility] [address], [place] [address] [phone] Signed SIGNATURE ON Leeanne Elizabeth 06/27/18 1208 END OF REP ORT
[2020-02-15] MEDS: CEFEPIME 2 GM/NS 0.9% 100 ML 100 ML IV SCH (16:19)
--- NOTE | 2020-02-15 16:20 | NUR ---
PATIENT'S DAUGHTER NHI #[phone]
[2020-02-15 16:41] VITALS: BP 128/86
[2020-02-15] MEDS ORDERED: MUPIROCIN22 GM TOP (17:28)
[2020-02-15] MEDS ORDERED: LASIX20 MG PO (17:28)
[2020-02-15] MEDS ORDERED: CLINDAMYCIN HC150 MG PO (17:28)
[2020-02-15] MEDS ORDERED: LIPITOR20 MG PO (17:28)
[2020-02-15] MEDS ORDERED: VENTOLIN HFA18 GM INH (17:28)
[2020-02-15] MEDS ORDERED: PANTOPRAZOLE SO40 MG PO (17:28)
[2020-02-15] MEDS ORDERED: FLOMAX0.4 MG PO (17:28)
[2020-02-15] MEDS ORDERED: COREG3.125 MG PO (17:28)
[2020-02-15] MEDS ORDERED: ASPIRIN325 MG PO (17:28)
[2020-02-15] MEDS ORDERED: MELATONIN3 MG PO (17:28)
[2020-02-15] MEDS ORDERED: MECLIZINE HCL12.5 MG PO (17:28)
[2020-02-15] MEDS ORDERED: TRELEGY ELLIPT1 EACH INH (17:28)
[2020-02-15] MEDS ORDERED: GERI-TUSSI100 MG/5 M PO (17:28)
[2020-02-15] MEDS ORDERED: GABAPENTIN100 MG PO ×2 (17:28)
[2020-02-15] MEDS ORDERED: ACETAMINOPHEN325 M1 PO (17:28)
[2020-02-15] MEDS ORDERED: PREDNISONE10 MG PO (17:28)
[2020-02-15] MEDS ORDERED: PLAVIX75 MG PO (17:28)
[2020-02-15] MEDS ORDERED: MUCINEX DM ER1 EACH PO (17:28)
[2020-02-15] MEDS ORDERED: MULTIVITAMINS1 EAC6 PO (17:28)
[2020-02-15] MEDS ORDERED: AMIODARONE HCL200 MG PO (17:28)
[2020-02-15] MEDS ORDERED: FAMOTIDINE20 MG PO (17:28)
[2020-02-15 18:13] VITALS: BP 128/86
[2020-02-15 18:24] VITALS: BP 128/86
--- NOTE | 2020-02-15 18:34 | NUR ---
Received pt fro ER at 1645 in wheelchair. Pt is aox3 and able to verbalize needs. Denies any pain at this time. 0 s/s of acute distress noted at time of admission. Pt is being admitted for cellulitis of right index finger. Notified Dr. Duarte of pt arrival to unit and received orders to restart all home medications. Spoke with daughter update her on patient condition.
[2020-02-15] MEDS ORDERED: GUAIFENESIN 200 MG/10 ML UDC PO PRN (19:00)
[2020-02-15] MEDS ORDERED: MECLIZINE HCL 12.5 MG TAB PO PRN (19:00)
[2020-02-15] MEDS ORDERED: PREDNISONE 10 MG TAB PO SCH (19:00)
[2020-02-15] MEDS ORDERED: GABAPENTIN 100 MG CAP PO SCH (19:00)
[2020-02-15] MEDS ORDERED: ALBUTEROL SULFATE HFA 8GM INHALATION AEROSOL INH PRN (19:00)
--- NOTE | 2020-02-15 19:00 | NUR ---
RECEIVED PATIENT IN BEDSIDE SHIFT REPORT. PATIENT RESTING IN BED AT THIS TIME. NO PAIN REPORTED. REDNESS NOTED TO R INDEX FINGER AND SOME REDNESS GOING UP ARM. NO S&S OF DISTRESS NOTED. BED LOCKED IN LOWEST POSITION, SIDE RAILS UPX2, CALL LIGHT IN REACH.
[2020-02-15] MEDS ORDERED: MELATONIN 5 MG TABLET PO PRN (19:30)
[2020-02-15 20:00] VITALS: BP 119/78
[2020-02-15] MEDS: GABAPENTIN 100 MG CAP PO SCH (20:30)
[2020-02-15] MEDS: GUAIFENESIN 600MG/DEXTROMETHORPHAN 30MG TABSR PO SCH (20:30)
[2020-02-15] MEDS: ATORVASTATIN 40 MG TAB PO SCH (20:30)
[2020-02-15] MEDS: CARVEDILOL 3.125 MG TAB PO SCH (20:30)
[2020-02-15] MEDS: FAMOTIDINE 20 MG TAB PO SCH (20:30)
[2020-02-15] MEDS: AMIODARONE HCL 200 MG TAB PO SCH (20:31)
[2020-02-15] MEDS: MUPIROCIN 2% OINT 22 GM TUBE TOP SCH (20:31)
[2020-02-15 22:10] VITALS: BP 119/78
[2020-02-16] VITALS (7 sets, daily range): BP systolic 103–122; BP diastolic 63–93
[2020-02-16] MEDS: CEFEPIME 2 GM/NS 0.9% 100 ML 100 ML IV SCH ×2 (04:45→16:15)
[2020-02-16] MEDS ORDERED: SODIUM CHLORIDE 0.9% 250ML 250 ML ONE (04:50)
[2020-02-16] MEDS: AMIODARONE HCL 200 MG TAB PO SCH ×4 (04:50→22:15)
[2020-02-16 05:31] LABS: BASOPHILS % 0.3 % (0.0-1.0); HEMATOCRIT 42.4 % (38.2-49.6); HEMOGLOBIN 12.9 g/dL (14.0-18.0); LYMPHOCYTES # (AUTO) 1.2 (1.0-3.2); MEAN CORPUSCULAR HEMOGLOBIN 24.8 pg (28-32); MEAN CORPUSCULAR HGB CONC 30.4 g/dL (31-35); MONOCYTES # (AUTO) 0.4 (0.2-0.8); MONOCYTES % 2.8 % (4.4-11.3); NEUTROPHILS # (AUTO) 11.8 (2.1-6.9); NEUTROPHILS % 86.4 % (38.7-80.0); PLATELET COUNT 235 x10e3/uL (140-360); RED CELL DISTRIBUTION WIDTH 23.2 % (11.7-14.4)
[2020-02-16 05:36] LABS: MEAN CORPUSCULAR VOLUME 81.5 fL (81-99)
[2020-02-16 05:55] LABS: ALBUMIN 2.9 g/dL (3.5-5.0); ALBUMIN/GLOBULIN RATIO 0.9 (0.8-2.0); CALCIUM 8.3 mg/dL (8.4-10.2); CREATININE, SERUM 1.18 mg/dL (0.72-1.25)
[2020-02-16] MEDS: Fluticasone/Umeclidin/Vilanter (Trelegy Ellipta 100-62.5-25) INH SCH (06:00)
[2020-02-16] MEDS: PANTOPRAZOLE SOD 40 MG TABEC PO SCH (06:05)
--- NOTE | 2020-02-16 07:30 | NUR ---
PATIENT IS AWAKE AND IN STABLE CONDITION WITH NO S/S OF RESPIRATORY DISTRESS. NO PAIN VOICED. TELEMETRY APPLIED. WHEELCHAIR PROVIDED TO PATIENT IN ROOM. CALL LIGHT IS WITHIN REACH, PATIENT INSTRUCTED TO CALL FOR ASSISTANCE NEEDED.
[2020-02-16] MEDS: CARVEDILOL 3.125 MG TAB PO SCH ×2 (08:24→21:38)
[2020-02-16] MEDS: VANCOMYCIN 1GM/NS 250 ML 250 ML IV SCH ×2 (08:24→21:38)
[2020-02-16] MEDS: ASPIRIN 325 MG TAB PO SCH (08:24)
[2020-02-16] MEDS: GABAPENTIN 100 MG CAP PO SCH ×3 (08:25→21:38)
[2020-02-16] MEDS: FUROSEMIDE 20 MG TAB PO SCH (08:25)
[2020-02-16] MEDS: GUAIFENESIN 600MG/DEXTROMETHORPHAN 30MG TABSR PO SCH ×3 (08:25→21:38)
[2020-02-16] MEDS: MUPIROCIN 2% OINT 22 GM TUBE TOP SCH ×3 (08:25→21:38)
[2020-02-16] MEDS: MULTIVITAMINS/MINERALS TAB PO SCH (08:25)
[2020-02-16] MEDS: CLOPIDOGREL BISULFATE 75 MG TAB PO SCH (08:25)
--- NOTE | 2020-02-16 09:12 | History and Physical ---
REASON FOR ADMISSION: The patient is a 74-year-old gentleman, who comes into the hospital with failed outpatient treatment of cellulitis and lymphangitis of the right upper extremity. HISTORY OF PRESENT ILLNESS: Mr. Ajith Vitale who developed a cellulitis and paronychia of his right finger. The patient had some lymphangitis extending up to the upper arm when seen on video-conference with the patient and he was started on clindamycin. The patient's cellulitis and lymphangitis progressed onto the right upper extremity and was sent from the emergency room to the hospital for further care and evaluation of the cellulitis. PAST MEDICAL HISTORY: History of atrial fibrillation, history of hyperlipidemia, history of coronary artery disease, history of congestive heart failure with preserved ejection fraction, history of reflux esophagitis, and history of benign prostatic hypertrophy. MEDICATIONS: He takes at home: 1. Acetaminophen as needed. 2. Albuterol for his COPD q.6 hours p.r.n. 3. Aspirin 325 mg. 4. Atorvastatin 20 mg, total of 80 mg at nighttime. 5. Carvedilol 3.125 two tablets twice a day. 6. Clindamycin, which was recently started. 7. Clopidogrel 75 mg. 8. Famotidine 20 mg. 9. Lasix 20 mg daily. 10. Gabapentin 200 mg q.12 hours. 11. Guaifenesin as needed. 12. Meclizine 12.5 mg. 13. Melatonin 3 mg. 14. Naprosyn t.i.d. p.r.n. 15. Pantoprazole 40 mg daily. 16. Prednisone q.48 hours. 17. Tamsulosin 0.4 mg daily. The patient also has polymyalgia rheumatica, which he takes prednisone for. REVIEW OF SYSTEMS: Negative for chest pain. No shortness of breath. No nausea, vomiting, or diarrhea. No constipation. No rectal bleeding. No hematochezia. No hematemesis. The patient is wheelchair bound, again secondary to PMR and also lower extremity weakness. ALLERGIES: THE PATIENT IS ALLERGIC TO SULFA, PENICILLINS, CELEBREX, AND TETRACYCLINE. FAMILY HISTORY: Noncontributory. PAST SURGICAL HISTORY: Noncontributory. PHYSICAL EXAMINATION: VITAL SIGNS: Temperature is 97.8, pulse of 72, respirations of 18, blood pressure is 122/88, pulse oximetry of 96% on room air. HEENT: Normocephalic, atraumatic. Pupils are reactive. CVS: S1 and S2 normal. Regular rate and rhythm. ABDOMEN: Nontender, nondistended. EXTREMITIES: No clubbing, no cyanosis, no edema. Right upper extremity with tenderness in the middle finger with extension of lymphangitis into forearm and arm. NEUROLOGIC: Stable. No decreased strength in the lower extremities and shoulder and pelvic girdle. IMAGING STUDIES: The finger was x-rayed, shows no acute osseous abnormality. Soft tissue swelling is noted. ASSESSMENT: Mr. Ajith Vitale is with: 1. Cellulitis of the upper finger with lymphangitic spread, cellulitis of the forearm and the arm. 2. History of chronic obstructive pulmonary disease. 3. History of coronary artery disease. 4. Hypertension. 5. Hyperlipidemia. 6. Polymyalgia rheumatica. 7. Debility. PLAN: 1. The patient has been put on cefepime and vancomycin. Vancomycin has been started 1 g q.24 hours in lieu of his kidney functions. Cefepime is q.12 hours 1 g. 2. We will continue his all home medications for his other comorbid conditions. 3. Monitor white count. Last white count, when he came was 14.14, today is 13.67. Chemistry shows sodium of 142, BUN of 21, creatinine of 1.42. 4. Additional diagnosis of acute kidney injury, which is improved by hydration. 5. Further recommendation per clinical course. We will continue to monitor the patient. We will change his vancomycin to q.12 hours and also do a one vancomycin trough on the third dose. Further recommendation per clinical course. MD CLIFFORD Rodriguez/MODL /[id number]
[2020-02-16] MEDS: TAMSULOSIN HCL 0.4 MG CAP PO SCH (17:22)
--- NOTE | 2020-02-16 17:22 | NUR ---
PT IN BED ,DENIES PAIN,IV TENDER TO TOUCH CHANGE TO LT FA 20 G
[2020-02-16] MEDS ORDERED: VANCOMYCIN 1GM/NS 250 ML 250 ML IV SCH (18:00)
--- NOTE | 2020-02-16 19:59 | NUR ---
RECEIVED REPORT FROM 7AM NURSE, PATIENT RESTING IN BED, NO DISTRESS NOTED. CALL LIGHT IN REACH. WILL CONTINUE TO MONITOR.
[2020-02-16] MEDS: ATORVASTATIN 40 MG TAB PO SCH (21:38)
[2020-02-16] MEDS: FAMOTIDINE 20 MG TAB PO SCH (22:15)
[2020-02-17] VITALS (9 sets, daily range): BP systolic 102–127; BP diastolic 74–94
[2020-02-17] MEDS: CEFEPIME 2 GM/NS 0.9% 100 ML 100 ML IV SCH (05:45)
[2020-02-17] MEDS: PANTOPRAZOLE SOD 40 MG TABEC PO SCH (05:45)
[2020-02-17] MEDS: MUPIROCIN 2% OINT 22 GM TUBE TOP SCH ×4 (05:45→20:30)
[2020-02-17] MEDS: AMIODARONE HCL 200 MG TAB PO SCH ×3 (05:45→21:17)
[2020-02-17] MEDS: Fluticasone/Umeclidin/Vilanter (Trelegy Ellipta 100-62.5-25) INH SCH (06:00)
[2020-02-17 06:12] LABS: BASOPHILS # (AUTO) 0.1 (0.0-0.1); BASOPHILS % 0.6 % (0.0-1.0); EOSINOPHILS # (AUTO) 0.2 (0.0-0.4); EOSINOPHILS % 1.5 % (0.0-6.0); HEMATOCRIT 46.2 % (38.2-49.6); HEMOGLOBIN 13.9 g/dL (14.0-18.0); LYMPHOCYTES # (AUTO) 2.3 (1.0-3.2); LYMPHOCYTES % 14.8 % (18.0-39.1); MEAN CORPUSCULAR HEMOGLOBIN 25.2 pg (28-32); MEAN CORPUSCULAR HGB CONC 30.1 g/dL (31-35); MEAN CORPUSCULAR VOLUME 83.7 fL (81-99); MONOCYTES # (AUTO) 0.8 (0.2-0.8); MONOCYTES % 5.1 % (4.4-11.3); NEUTROPHILS # (AUTO) 11.9 (2.1-6.9); NEUTROPHILS % 76.3 % (38.7-80.0); PLATELET COUNT 253 x10e3/uL (140-360); RED BLOOD COUNT 5.52 x10e6/uL (4.3-5.7); RED CELL DISTRIBUTION WIDTH 23.2 % (11.7-14.4)
[2020-02-17 06:38] LABS: ANION GAP 14.9 mmol/L (8-16); CALCIUM 8.6 mg/dL (8.4-10.2); CREATININE, SERUM 1.32 mg/dL (0.72-1.25); POTASSIUM 3.9 mmol/L (3.5-5.1)
--- NOTE | 2020-02-17 07:25 | NUR ---
recd pt in bed no distress ntoed denies pain ,dr ashraf here.
[2020-02-17] MEDS: CLINDAMYCIN 300MG 50 ML IV SCH ×3 (08:51→20:30)
[2020-02-17] MEDS: ASPIRIN 325 MG TAB PO SCH (08:57)
[2020-02-17] MEDS: MULTIVITAMINS/MINERALS TAB PO SCH (08:57)
[2020-02-17] MEDS: FUROSEMIDE 20 MG TAB PO SCH (08:57)
[2020-02-17] MEDS: GUAIFENESIN 600MG/DEXTROMETHORPHAN 30MG TABSR PO SCH ×3 (08:57→20:30)
[2020-02-17] MEDS: CLOPIDOGREL BISULFATE 75 MG TAB PO SCH (08:58)
[2020-02-17] MEDS: CARVEDILOL 3.125 MG TAB PO SCH ×2 (08:58→18:54)
[2020-02-17] MEDS: GABAPENTIN 100 MG CAP PO SCH ×3 (08:58→20:30)
--- NOTE | 2020-02-17 09:13 | Progress Note ---
DATE: SUBJECTIVE: The patient is a 74-year-old male, who came in with lymphangitis and cellulitis of the upper extremity. The patient also complains of pain and erythema to the area. Tenderness is not increased, but still present and unable to bend his fingers. Lymphangitic spread to the forearm is evident. OBJECTIVE: VITAL SIGNS: Temperature is 97.4, pulse 79, respirations 22, blood pressure is 127/94, pulse oximetry of 94% on room air. HEENT: Normocephalic and atraumatic. Pupils are reactive to light and accommodation. CVS: S1 and S2 normal. ABDOMEN: Nontender and nondistended. EXTREMITIES: Upper extremity with lymphangitic spread and redness in the index finger with erythema and inability to bend his distal interphalangeal and proximal interphalangeal joints, redness and erythema and lymphangitis spreading to the forearm and the arm and tenderness present in that area too. LABORATORY VALUES: The patient's white count has gone up to 15,000, hemoglobin of 13.9, hematocrit of 46.2. Chemistry is pending. Last creatinine was 1.18. ASSESSMENT: Mr. Ajith Vitale with: 1. Possibly a cellulitis and lymphangitis of the finger with spread to the forearm and arm. 2. Apparent presence of cat in the house and in the apartment also, possible nahomy or bite. 3. History of chronic obstructive pulmonary disorder. 4. History of coronary artery disease. 5. Hypertension. 6. Polymyalgia rheumatica. 7. Debility. PLAN: 1. Since the white count is going up, we will go ahead and change his vancomycin, cefepime out to Cipro and clindamycin. Clindamycin IV q.6 hours and Cipro twice a day. 2. Monitor his white count, seems to be increasing. The patient will need IV antibiotics and inpatient admission to prevent sepsis. 3. Acute kidney injury, which has improved with hydration. 4. We will follow up with his creatinine levels. 5. Chronic conditions. Continue all home medications and also with his medication for CAD and congestive heart failure. Further recommendation per clinical course. He has chronic diastolic heart failure. MD CLIFFORD Rodriguez/LUKE /[id number]
--- NOTE | 2020-02-17 09:42 | NUR ---
Pt unavailable at this time. Pt's nurse at bedside. Will follow up as able. BENJIE MENEZES [facility] O: [phone]
[2020-02-17] MEDS: CIPROFLOXACIN 400 MG/D5W 200ML 200 ML IV SCH ×2 (10:19→21:17)
--- NOTE | 2020-02-17 11:45 | NUR ---
RT INDEX FINGER RED LESS SWELLING TODAY,NO RED STREAKS NOTED
[2020-02-17] MEDS ORDERED: ONDANSETRON HCL 4 MG ORAL DISINTEGRATING TAB PO PRN (15:45)
[2020-02-17] MEDS: TAMSULOSIN HCL 0.4 MG CAP PO SCH (16:40)
--- NOTE | 2020-02-17 17:30 | NUR ---
pt up in bed no distress ntoed ,denies pain
[2020-02-17] MEDS: FAMOTIDINE 20 MG TAB PO SCH (20:30)
[2020-02-17] MEDS: PREDNISONE 5 MG TAB PO SCH (20:30)
[2020-02-17] MEDS: ZOLPIDEM TARTRATE 5 MG TAB PO PRN (20:30)
[2020-02-17] MEDS: ATORVASTATIN 40 MG TAB PO SCH (20:30)
--- NOTE | 2020-02-17 20:30 | NUR ---
PATIENT RESTING IN BED IN STABLE CONDITION AOX4, NO SIGNS OF DISTRESS NOTED. REDNESS NOTED ON RIGHT INDEX FINGER AND PATIENT VOICES NO PAIN AT THIS TIME. IV ANTIBIOTICS ARE RUNNING AT ORDERED RATE. BED IS IN LOWEST POSITION, BOTH SIDE RAILS ARE UP, CALL LIGHT IS WITHIN EASY REACH, WILL CONTINUE TO MONITOR.
[2020-02-18] VITALS (8 sets, daily range): BP systolic 99–115; BP diastolic 67–90
[2020-02-18] MEDS: CLINDAMYCIN 300MG 50 ML IV SCH ×4 (01:51→20:22)
[2020-02-18] MEDS: PANTOPRAZOLE SOD 40 MG TABEC PO SCH (05:53)
[2020-02-18] MEDS: Fluticasone/Umeclidin/Vilanter (Trelegy Ellipta 100-62.5-25) INH SCH (05:53)
[2020-02-18] MEDS: AMIODARONE HCL 200 MG TAB PO SCH ×3 (05:53→21:08)
[2020-02-18 06:17] LABS: BASOPHILS # (AUTO) 0.1 (0.0-0.1); BASOPHILS % 0.6 % (0.0-1.0); EOSINOPHILS # (AUTO) 0.2 (0.0-0.4); EOSINOPHILS % 1.2 % (0.0-6.0); HEMATOCRIT 43.7 % (38.2-49.6); HEMOGLOBIN 13.4 g/dL (14.0-18.0); LYMPHOCYTES # (AUTO) 1.4 (1.0-3.2); LYMPHOCYTES % 11.3 % (18.0-39.1); MEAN CORPUSCULAR HGB CONC 30.7 g/dL (31-35); MEAN CORPUSCULAR VOLUME 81.4 fL (81-99); MONOCYTES # (AUTO) 0.6 (0.2-0.8); MONOCYTES % 4.5 % (4.4-11.3); NEUTROPHILS # (AUTO) 9.8 (2.1-6.9); NEUTROPHILS % 80.9 % (38.7-80.0); PLATELET COUNT 231 x10e3/uL (140-360); RED BLOOD COUNT 5.37 x10e6/uL (4.3-5.7); RED CELL DISTRIBUTION WIDTH 23.1 % (11.7-14.4)
[2020-02-18 06:29] LABS: ANION GAP 11.9 mmol/L (8-16); BLOOD UREA NITROGEN 17 mg/dL (7-26); BUN/CREATININE RATIO 16 (6-25); CALCIUM 7.8 mg/dL (8.4-10.2); CARBON DIOXIDE 21 mmol/L (22-29); CHLORIDE 109 mmol/L (98-107); CREATININE, SERUM 1.07 mg/dL (0.72-1.25); EST GLOMERULAR FILTRATION RATE > 60 ML/MIN (60-); GLUCOSE 89 mg/dL (74-118); POTASSIUM 3.9 mmol/L (3.5-5.1); SODIUM 138 mmol/L (136-145)
--- NOTE | 2020-02-18 07:00 | NUR ---
received bedside report. pt is alert sitting up in bed, no s/s of distress, no complaints. call light within reach and instructed pt to call RN for help
--- NOTE | 2020-02-18 08:13 | Progress Note ---
DATE: SUBJECTIVE: This is a 74-year-old male that came in with cellulitis of the right finger with lymphangitis. The patient is currently doing better. No chest pain. No shortness of breath. The right index finger is less red, but still has spreading lymphangitis to the forearm and arm. No chest pain or shortness of breath, does want a breathing treatment according to him. OBJECTIVE: VITAL SIGNS: Temperature is 98.4, pulse of 96, respiration is 20, blood pressure is on lower side of 99/67. HEENT: Normocephalic and atraumatic. Pupils are reactive. CVS: Irregular. ABDOMEN: Nontender, nondistended. Right side index finger with lymphangitis and cellulitis spreading onto the forearm and arm. EXTREMITIES: No clubbing, no cyanosis, no edema. LABORATORY VALUES: White count has come down to 12,000 down from 15,000 hemoglobin of 13.4, hematocrit 43, neutrophil count none has also trended down with a change of antibiotic. Chemistries; sodium 138, potassium 3.9. Microbiology, no growth to the blood cultures. ASSESSMENT: Mr. Iam Canseco is a 74-year-old gentleman with: 1. Cellulitis and lymphangitis of the finger with spread to the forearm. 2. Cat bite. 3. Chronic obstructive pulmonary disease. 4. Coronary artery disease. 5. Hypertension. 6. Polymyalgia rheumatica. 7. Debility. PLAN: Continue on clindamycin and Cipro. White count is trending down. Acute kidney injury is better, chronic conditions, continue medications and also start back on his albuterol and Atrovent treatments as needed. Further recommendation per clinical course. Disposition will be 1-2 days depending on the regression of the disease. MD PATO RodriguezJ/MODL /[id number]
[2020-02-18] MEDS: FUROSEMIDE 20 MG TAB PO SCH (10:04)
[2020-02-18] MEDS: CARVEDILOL 3.125 MG TAB PO SCH ×2 (10:04→18:14)
[2020-02-18] MEDS: CLOPIDOGREL BISULFATE 75 MG TAB PO SCH (10:04)
[2020-02-18] MEDS: GABAPENTIN 100 MG CAP PO SCH ×3 (10:04→20:22)
[2020-02-18] MEDS: ASPIRIN 325 MG TAB PO SCH (10:04)
[2020-02-18] MEDS: GUAIFENESIN 600MG/DEXTROMETHORPHAN 30MG TABSR PO SCH ×3 (10:04→20:22)
[2020-02-18] MEDS: MULTIVITAMINS/MINERALS TAB PO SCH (10:04)
[2020-02-18] MEDS: IPRATROPIUM BROMIDE 0.02% 2.5 ML NEB NEB SCH ×2 (11:15→20:00)
[2020-02-18] MEDS: ALBUTEROL SULF 0.083% NEB SOLN 3 ML NEB NEB PRN ×2 (11:15→20:00)
[2020-02-18] MEDS: CIPROFLOXACIN 400 MG/D5W 200ML 200 ML IV SCH ×2 (11:22→21:08)
[2020-02-18] MEDS: MUPIROCIN 2% OINT 22 GM TUBE TOP SCH ×3 (11:27→20:22)
[2020-02-18] MEDS: TAMSULOSIN HCL 0.4 MG CAP PO SCH (18:14)
[2020-02-18] MEDS ORDERED: IPRATROPIUM BROMIDE INHALER 12.9 GM INH INH SCH (19:00)
--- NOTE | 2020-02-18 19:30 | NUR ---
RECEIVED REPORT FROM PREVIOUS NURSE. CALL LIGHT WITHIN REACH. PATIENT IN BED.
[2020-02-18] MEDS: ATORVASTATIN 40 MG TAB PO SCH (20:22)
[2020-02-18] MEDS: FAMOTIDINE 20 MG TAB PO SCH (20:22)
[2020-02-18] MEDS: ZOLPIDEM TARTRATE 5 MG TAB PO PRN (20:23)
[2020-02-19] VITALS (7 sets, daily range): BP systolic 99–116; BP diastolic 63–77
[2020-02-19] MEDS: CLINDAMYCIN 300MG 50 ML IV SCH ×4 (02:23→21:13)
[2020-02-19] MEDS: PANTOPRAZOLE SOD 40 MG TABEC PO SCH (06:00)
[2020-02-19] MEDS: AMIODARONE HCL 200 MG TAB PO SCH ×3 (06:00→21:23)
[2020-02-19] MEDS: Fluticasone/Umeclidin/Vilanter (Trelegy Ellipta 100-62.5-25) INH SCH (06:00)
--- NOTE | 2020-02-19 07:00 | NUR ---
RECEIVED BEDSIDE REPORT. PT IS ALERT RESTING IN BED, NO S/S OF DISTRESS. CALL LIGHT WITHIN REACH AND INSTRUCTED PT TO CALL RN FOR HELP
--- NOTE | 2020-02-19 07:18 | NUR ---
GAVE BEDSIDE SHIFT REPORT TO ONCOMING NURSE. CALL LIGHT WITHIN REACH. PATIENT IN BED.
[2020-02-19] MEDS: IPRATROPIUM BROMIDE 0.02% 2.5 ML NEB NEB SCH ×2 (07:30→20:00)
--- NOTE | 2020-02-19 07:52 | Progress Note ---
DATE: SUBJECTIVE: A 74-year-old gentleman with a history of cellulitis and lymphangitis in the right index finger. The patient is feeling a bit better. The pain still continues in joint, DIP, and PIP. Lymphangitis spread has decreased. The patient's finger is looking better. OBJECTIVE: VITAL SIGNS: Temperature is 97.7, pulse of 79, respirations 18, blood pressure is 99/70, pulse oximeter 94%. HEENT: Normocephalic and atraumatic. Pupils are reactive to light and accommodation. CVS: S1 and S2 normal. Regular rate and rhythm. ABDOMEN: Nontender and nondistended. EXTREMITIES: No clubbing. No cyanosis. Right index finger with lymphangitis, fiery red still, but the lymphangitic spread is better. Forearm spread noted. Arm is much decreased and dissipated. LABORATORY VALUES: Hematology; white count is 12.13 yesterday. ASSESSMENT: Mr. Ajith Vitale with: 1. Cellulitis and lymphocyte of the finger, better. 2. Cat bite. 3. Chronic obstructive pulmonary disorder. 4. Coronary artery disease. 5. Hypertension. 6. Polymyalgia rheumatica. 7. Debility. PLAN: Continue with Cipro and clindamycin. The patient's white count is better. Acute kidney injury is better. Plan to discharge tomorrow on oral clindamycin if lymphangitis spread has decreased in area. Further recommendation per clinical course. We will continue to monitor the patient and discharge will be to the assisted living place. MD CLIFFORD Rodriguez/MODL /[id number]
[2020-02-19] MEDS: ASPIRIN 325 MG TAB PO SCH (08:40)
[2020-02-19] MEDS: MULTIVITAMINS/MINERALS TAB PO SCH (08:40)
[2020-02-19] MEDS: FUROSEMIDE 20 MG TAB PO SCH (08:40)
[2020-02-19] MEDS: CARVEDILOL 3.125 MG TAB PO SCH ×2 (08:40→17:47)
[2020-02-19] MEDS: GABAPENTIN 100 MG CAP PO SCH ×3 (08:40→21:23)
[2020-02-19] MEDS: CLOPIDOGREL BISULFATE 75 MG TAB PO SCH (08:40)
[2020-02-19] MEDS: MUPIROCIN 2% OINT 22 GM TUBE TOP SCH ×3 (08:40→21:22)
[2020-02-19] MEDS: GUAIFENESIN 600MG/DEXTROMETHORPHAN 30MG TABSR PO SCH ×3 (08:40→21:23)
--- NOTE | 2020-02-19 10:24 | NUR ---
attempted Iv access X2 sticks
--- NOTE | 2020-02-19 11:40 | NUR ---
spoke with Christal at [facility]'s [place], she requested that upon discharge to print an updated transfer MAR and have the assigned RN sign it.
[2020-02-19] MEDS: CIPROFLOXACIN 400 MG/D5W 200ML 200 ML IV SCH ×2 (12:40→21:40)
--- NOTE | 2020-02-19 15:18 | NUR ---
LEFT COVID FORM ON CHART FOR MD TO SIGN TO BE ABLE TO FAX TO FACILITY.
[2020-02-19] MEDS: TAMSULOSIN HCL 0.4 MG CAP PO SCH (17:06)
--- NOTE | 2020-02-19 19:29 | NUR ---
RECEIVED REPORT FROM PREVIOUS NURSE. CALL LIGHT WITHIN REACH. PATIENT IN BED. ROUNDING PERFORMED.
[2020-02-19] MEDS: ALBUTEROL SULF 0.083% NEB SOLN 3 ML NEB NEB PRN (20:00)
[2020-02-19] MEDS: PREDNISONE 5 MG TAB PO SCH (21:13)
[2020-02-19] MEDS: ZOLPIDEM TARTRATE 5 MG TAB PO PRN (21:16)
[2020-02-19] MEDS: FAMOTIDINE 20 MG TAB PO SCH (21:22)
[2020-02-19] MEDS: ATORVASTATIN 40 MG TAB PO SCH (21:23)
[2020-02-20] VITALS: BP_SYST 110; BP_SYST 114; BP_DIAS 76; BP_DIAS 77
[2020-02-20] MEDS: CLINDAMYCIN 300MG 50 ML IV SCH ×2 (02:00→08:45)
[2020-02-20 04:00] VITALS: BP 110/76
[2020-02-20] MEDS: AMIODARONE HCL 200 MG TAB PO SCH (05:36)
[2020-02-20] MEDS: Fluticasone/Umeclidin/Vilanter (Trelegy Ellipta 100-62.5-25) INH SCH (05:36)
[2020-02-20] MEDS: PANTOPRAZOLE SOD 40 MG TABEC PO SCH (05:36)
[2020-02-20] MEDS: IPRATROPIUM BROMIDE 0.02% 2.5 ML NEB NEB SCH (06:20)
--- NOTE | 2020-02-20 07:04 | NUR ---
RECEIVED BEDSIDE SHIFT REPORT FROM OFF GOING NURSE. PATIENT IS RESTING IN BED. NO ACUTE DISTRESS NOTED. CALL LIGHT WITHIN REACH. BED IN THE LOWEST POSITION. BED ALARM ON.
--- NOTE | 2020-02-20 07:17 | Progress Note ---
DATE: SUBJECTIVE: A 74-year-old gentleman came in with lymphangitis of the right index finger with spread to the forearm and the arm. Currently, the patient is doing better. Lymphangitis in the forearm has decreased and almost gone. The patient's redness in the index finger is still present, but however, the patient is able to bend the DIP and PIP joints without any problems, clinically doing much better. OBJECTIVE: VITAL SIGNS: Currently, temperature is 97.1, pulse of 81, respirations of 19, blood pressure is 110/76, pulse oximetry of 95%. HEENT: Normocephalic and atraumatic. Pupils are reactive. CVS: S1 and S2 are normal. Regular rate and rhythm. ABDOMEN: Nontender, nondistended. EXTREMITIES: Right index finger with erythema, redness, again can bend DIP and PIP joints. No clubbing. No cyanosis. No edema. Good pulses. LABORATORY VALUES: Trend down noted on CBC. BUN and creatinine have normalized. ASSESSMENT: Mr. Ajith Vitale with: 1. Right index finger cellulitis with lymphangitic spread. 2. Cat bite. 3. Acute kidney injury, improved. 4. Hypertension. 5. Polymyalgia rheumatica. 6. Debility. PLAN: Okay to discharge the patient on clindamycin and ciprofloxacin. The patient's white count is better. The patient is to go home and follow up with me in about a week's time. Further recommendation per clinical course. MD CLIFFORD Rodriguez/LUKE /[id number]
[2020-02-20 07:24] VITALS: BP 118/79
--- NOTE | 2020-02-20 07:31 | NUR ---
GAVE BEDSIDE SHIFT REPORT TO ONCOMING NURSE. CALL LIGHT WITHIN REACH. PATIENT IN BED.
--- NOTE | 2020-02-20 08:23 | NUR ---
FAXED COVID FORM TO ED[facility] TO [facility]
[2020-02-20] MEDS: CARVEDILOL 3.125 MG TAB PO SCH (08:45)
[2020-02-20] MEDS: GUAIFENESIN 600MG/DEXTROMETHORPHAN 30MG TABSR PO SCH (08:49)
[2020-02-20] MEDS: GABAPENTIN 100 MG CAP PO SCH (08:49)
[2020-02-20] MEDS: MUPIROCIN 2% OINT 22 GM TUBE TOP SCH (08:49)
[2020-02-20] MEDS: CLOPIDOGREL BISULFATE 75 MG TAB PO SCH (08:49)
[2020-02-20] MEDS: ASPIRIN 325 MG TAB PO SCH (08:49)
[2020-02-20] MEDS: MULTIVITAMINS/MINERALS TAB PO SCH (08:49)
[2020-02-20] MEDS: FUROSEMIDE 20 MG TAB PO SCH (08:49)
[2020-02-20 08:56] VITALS: BP 118/79
[2020-02-20] MEDS: CIPROFLOXACIN 400 MG/D5W 200ML 200 ML IV SCH (09:16)
[2020-02-20 11:03] VITALS: BP 111/82
--- NOTE | 2020-02-20 12:19 | NUR ---
RECEIVED DC ORDER FROM DR. PARIKH, PATIENT IS IN STABLE CONDITION. IV LINE TO LEFT FOREARM DISCONTINUED WITH TIP INTACT, PRESSURE APPLIED TO SITE, NO BLEEDING NOTED. DISCHARGE TEACHING PROVIDED TO PATIENT, HE VERBALIZED UNDERSTANDING. DISCHARGE FOLDER WITH PAPERWORK AND PRESCRIPTIONS ON HAND. PATIENT TRANSFER BACK TO [facility] VIA EMS PER PATIENTS REQUEST.
[2020-02-20] MEDS ORDERED: CLINDAMYCIN HCL 150 MG CAP PO SCH (18:00)
[2020-02-20] MEDS ORDERED: CIPROFLOXACIN 500 MG TAB PO SCH (21:00)
== END 2020-02-20 12:19 | disposition home or self-care (01) | DRG 603 ==
LOC: ER 14:41 → ERHOLD 15:56 → MED/SURG3 16:41
PROVIDERS: ADMIT Family Medicine; ATTEND Family Medicine
DX: L03.113 Cellulitis of right upper limb (principal); N17.9 Acute kidney failure, unspecified; J44.9 Chronic obstructive pulmonary disease, unspecified; E78.5 Hyperlipidemia, unspecified; I25.10 Atherosclerotic heart disease of native coronary artery without angina pectoris; M35.3 Polymyalgia rheumatica; W55.01XA Bitten by cat, initial encounter; S61.250D Open bite of right index finger without damage to nail, subsequent encounter
CPT/HCPCS: 36415; 80048; 80053; 85025; 87040; 87635; 94640; 99284; J3370; J7050; J7512